=== PATIENT | female | born 1950 | race Caucasian/White ===

== ENCOUNTER 2016-05-29 13:49 | Emergency (ER) | payer OTHER, MEDICAID ==
[~2016-05-29] VITALS: Ht 152.4 cm; Wt 81.6 kg
[~2016-05-29 13:49] MED LIST: ATIVAN1 M1 PO; BENADRYL50 MG PO; CATAPRES0.2 MG PO; HYZAAR 12.5 MG-1 TAB PO; LASIX20 M1 PO; LIPITOR10 MG PO; LOPRESSOR100 M1 PO; NORVASC10 MG PO; PERCOCET 325 MG1 TA4 PO; XANAX0.25 MG PO; ZOLOFT25 MG PO; [UNRECOGNIZED DRUG - OTHER] PO
--- NOTE | 2016-05-29 13:49 | NUR ---
Patient was BIBA and taken to bed 05 via gurney per EMS.
[2016-05-29 13:56] VITALS: BP 138/84
--- NOTE | 2016-05-29 14:13 | NUR ---
BIBA DUE TO RIGHT FOOT PAIN S/P FALL, PT AAO, SKIN WARM TO TOUCH RESP. EVEN AND UNLABORED,NOTED MULTIPLE DRY EXCORIATION ON BOTH FEET AND BOTH PLANTAR,MULTIPLE SMALL SCAR ON LOWER EXTREMITIES, EDEMA NON PITTING ON BOTH FEET 1+, DENIES N/VD.
--- NOTE | 2016-05-29 15:02 | NUR ---
Dr. Duarte evaluating patient at bedside.
[2016-05-29] MEDS ORDERED: KETOROLAC 60 MG/2 ML VIAL IM ONE (15:10)
--- NOTE | 2016-05-29 15:19 | NUR ---
XRAY AT BEDSIDE
[2016-05-29] MEDS ORDERED: fentaNYL 0.05 MG/ML VIAL IM ONE (16:00)
--- NOTE | 2016-05-29 16:23 | NUR ---
PT SLEEPING AT THIS TIME, WILL CHECK PT AGAIN LATER.
[2016-05-29 17:54] VITALS: BP 160/90
--- NOTE | 2016-05-29 17:58 | NUR ---
PUT PT IN THE WHEELCHAIR, PT AAO, STILL COMPLAINING OF PAIN ON RIGHT FOOT BUT ALREADY MEDICATED, SANDWHICH GIVEN , STILL WAITING FOR DAUGHTER TO COME FOR CLEANER WALL, VITAL SIGN STABLE.
--- NOTE | 2016-05-29 18:01 | NUR ---
Patient discharged with v/s stable. Written and verbal after care instructions given and explained. Patient alert, oriented and verbalized understanding of instructions. Wheel Chair Assisted with steady gait. All questions addressed prior to discharge. ID band removed. Patient advised to follow up with PMD. Rx of TRAMADOL,LOTRIMIN given. Patient educated on indication of medication including possible reaction and side effects. Opportunity to ask questions provided and answered.
[2016-05-29] MEDS ORDERED: CLOTRIMAZOLE 1% 30 GM CRM TUBE TP SCH (21:00)
== END 2016-05-29 18:01 | disposition home or self-care (01) ==
LOC: MED 13:49
DX: S93.601A Unspecified sprain of right foot, initial encounter (principal); B35.4 Tinea corporis; I50.9 Heart failure, unspecified; I11.0 Hypertensive heart disease with heart failure; Z88.1 Allergy status to other antibiotic agents; Z88.5 Allergy status to narcotic agent; Z91.013 Allergy to seafood; Z86.73 Personal history of transient ischemic attack (TIA), and cerebral infarction without residual deficits; X50.1XXA Overexertion from prolonged static or awkward postures, initial encounter; Y93.89 Activity, other specified; Y92.811 Bus as the place of occurrence of the external cause; Y99.8 Other external cause status
CPT/HCPCS: 73630; 96372; 99284; J1885; J3010

== ENCOUNTER 2017-05-04 20:10 | Emergency (ER) | payer OTHER, MEDICAID ==
[~2017-05-04] VITALS: Ht 152.4 cm; Wt 93.9 kg
[~2017-05-04 20:10] MED LIST changes: +ACET-5636 PO; +AMLO10TA PO; -ATIVAN1 M1 PO; +ATOR10TA PO; +BEN50 PO; -BENADRYL50 MG PO; -CATAPRES0.2 MG PO; +CLON0.2T43 PO; +FURO-572 PO; +HYDR1TAB22 PO; -HYZAAR 12.5 MG-1 TAB PO; -LASIX20 M1 PO; -LIPITOR10 MG PO; -LOPRESSOR100 M1 PO; +LORA-476 PO; +METO100T98 PO; -NORVASC10 MG PO; -PERCOCET 325 MG1 TA4 PO; +SERT25TA PO; -XANAX0.25 MG PO; -ZOLOFT25 MG PO; -[UNRECOGNIZED DRUG - OTHER] PO
[2017-05-04 20:37] VITALS: BP 182/105
--- NOTE | 2017-05-04 20:43 | NUR ---
PT TAKEN TO ER BED 3
[2017-05-04] MEDS ORDERED: CLOB-114 TP (20:56)
[2017-05-04] MEDS ORDERED: LON2.5 PO (20:56)
[2017-05-04] MEDS ORDERED: ACET-2869 PO (20:56)
[2017-05-04] MEDS ORDERED: CLOP75TA55 PO (20:56)
[2017-05-04] MEDS ORDERED: HYDR-3233 PO (20:56)
[2017-05-04] MEDS ORDERED: DOCU-299 PO (20:56)
[2017-05-04] MEDS ORDERED: ASPI81EC98 PO (20:56)
[2017-05-04] MEDS ORDERED: ASPIRIN 325 MG TAB PO ONE ×2 (21:00→22:00)
[2017-05-04] MEDS ORDERED: NALOXONE 0.4 MG/ML VIAL ONE ×2 (21:04→21:07)
[2017-05-04] MEDS ORDERED: ONDANSETRON 4 MG/2 ML VIAL ONE (21:04)
--- NOTE | 2017-05-04 21:05 | NUR ---
PATIENT BIBA FOR ABD PAIN. PT HAD UMBILICAL SURG YESTERDAY AT [facility] IN [facility]. PAIN IS 12/26 MED HX: STINTS/ANEURESYM/1 KIDNEY/HTN . DENIES N/V/D; SKIN IS PINK/WARM/DRY, SURGICAL WOUND SITE TO MIDDLE ABDOMEN, CLOSE WOUND; AAOX4 WITH EVEN AND STEADY GAIT; LUNGS CLEAR BL; C/O ONSET OF CHEST PAIN 10/26, SR ON EKG. PT DENIES ANY FEVER, SOB, OR COUGH AT THIS TIME; HTN NOTED, PATIENT POSITIONED FOR COMFORT; HOB ELEVATED; BEDRAILS UP X2; BED DOWN. ER MD MADE AWARE OF PT STATUS.
[2017-05-04] MEDS ORDERED: NALOXONE PFS 2 MG/2 ML SYR ONE (21:06)
--- NOTE | 2017-05-04 21:26 | NUR ---
DR. SAWYER EVALUATING PATIENT
--- NOTE | 2017-05-04 21:27 | NUR ---
X-Ray at bedside.
[2017-05-04] MEDS ORDERED: oxyCODONE/APAP 5/325 MG 1 TAB TAB PO ONE (21:30)
[2017-05-04] MEDS ORDERED: hydrALAZINE 20 MG/ML VIAL IM ONE (21:30)
[2017-05-04] MEDS ORDERED: ONDANSETRON 4 MG/2 ML VIAL IVP ONE (22:00)
[2017-05-04] MEDS ORDERED: NACL 0.9% 1,000 ML IV ONE (22:00)
[2017-05-04] MEDS ORDERED: NITROGLYCERIN 0.4 MG TAB SL ONE (22:00)
[2017-05-04 22:09] LABS: BASOPHILS # (AUTO) 0.2 K/uL (0.00-0.22); BASOPHILS % (AUTO) 1.3 % (0.0-2.0); EOSINOPHILS # (AUTO) 0.8 K/uL (0-0.4); EOSINOPHILS % (AUTO) 7.1 % (0.0-4.0); HEMATOCRIT 35.2 % (36-48); HEMOGLOBIN 11.3 g/dL (12.0-16.0); LYMPHOCYTES # (AUTO) 2.8 K/uL (2.5-16.5); LYMPHOCYTES % (AUTO) 23.6 % (20.5-51.1); MEAN CORPUSCULAR HEMOGLOBIN 24 pg (27-31); MEAN CORPUSCULAR HGB CONC 32 g/dL (33-37); MEAN CORPUSCULAR VOLUME 75 fL (80-94); MONOCYTES # (AUTO) 0.9 K/uL (0.8-1.0); MONOCYTES % (AUTO) 7.6 % (1.7-9.3); NEUTROPHILS # (AUTO) 7.1 K/uL (1.8-7.7); NEUTROPHILS % (AUTO) 60.4 % (42.2-75.2); PLATELET COUNT (AUTO) 361 K/uL (140-450); RED CELL DISTRIBUTION WIDTH 16.4 % (11.6-13.7); WHITE BLOOD COUNT (AUTO) 11.8 K/uL (4.8-10.8)
[2017-05-04 22:27] LABS: ANION GAP 14.8 (8-16); CARBON DIOXIDE 23.1 mmol/L (21-32); CREATININE 1.1 mg/dL (0.6-1.3); POTASSIUM 3.9 mmol/L (3.5-5.1)
[2017-05-04 22:33] LABS: ALBUMIN 3.2 g/dL (3.4-5.0); TOTAL BILIRUBIN 0.2 mg/dL (0.0-1.0)
[2017-05-04] MEDS ORDERED: ZOLPIDEM 5 MG TAB PO PRN (22:45)
[2017-05-04] MEDS ORDERED: ACETAMINOPHEN 325 MG TAB PO PRN (22:45)
[2017-05-04] MEDS ORDERED: LORazepam 2 MG/ML VIAL IVP PRN (22:45)
[2017-05-04] MEDS ORDERED: ONDANSETRON 4 MG/2 ML VIAL IVP PRN (22:45)
[2017-05-04] MEDS ORDERED: diphenhydrAMINE 50 MG CAP PO PRN (22:55)
[2017-05-04] MEDS ORDERED: OXYCODONE HCL PO PRN (22:55)
[2017-05-04] MEDS ORDERED: ACETAMINOPHEN PO PRN (22:55)
[2017-05-04] MEDS ORDERED: LORazepam 1 MG TAB PO PRN (22:55)
[2017-05-04 23:45] VITALS: BP 156/79
--- NOTE | 2017-05-04 23:45 | NUR ---
RECEIVED PATIENT FROM ER. PATIENT A&OX4. PATIENT STATES 9/10 PAIN IN ABDOMINAL AREA. PATIENT IV PATENT AND INTACT. NO SIGNS OR SYMPTOMS OF ACUTE DISTRESS NOTED. PATIENT ORIENTED TO UNIT. CALL LIGHT WITHIN REACH. SAFETY MEASURES ENSURED. WILL CONTINUE TO MONITOR.
--- NOTE | 2017-05-04 23:45 | NUR ---
Patient will be admitted to care of DR. MCCORMICK. Admited to [facility]. Will go to room 112A. Belongings list completed. Report to DHIRAJ.
[2017-05-05] MEDS: HYDROcodone/APAP 5/325 MG 1 TAB TAB PO PRN ×2 (00:36→18:15)
--- NOTE | 2017-05-05 02:03 | NUR ---
PATIENT STATES BREAKTHROUGH PAIN 11/26. NOTIFIED DR. CATALAN. WILL MEDICATE ORDERED.
[2017-05-05] MEDS: traMADol 50 MG TAB PO PRN ×3 (02:17→11:00)
[2017-05-05 04:00] VITALS: BP 144/69
--- NOTE | 2017-05-05 07:30 | NUR ---
RECEIVED PATIENT REPORT AT BEDSIDE. PATIENT IS AWAKE AND ALERT AT THIS TIME. PATIENT A&OX4 AT THIS TIME. PATIENT BREATHING IS IS SYMMETRICAL AND UNLABORED. UPDATED BOARDS AND LOWERED THE BED. CALL LIGHT WITHIN REACH OF PATIENT. NIGHTSHIFT NURSE ENDORSED PAIN ASSESSMENT. WILL REASSESS PATIENT'S PAIN. WILL CONTINUE TO MONITOR PATIENT.
--- NOTE | 2017-05-05 07:37 | NUR ---
ENDORSED PLAN OF CARE TO AM RN. PATIENT IN STABLE CONDITION.
[2017-05-05 07:40] LABS: ANION GAP 13.7 (8-16); CARBON DIOXIDE 24.1 mmol/L (21-32); CREATININE 1.1 mg/dL (0.6-1.3); POTASSIUM 3.8 mmol/L (3.5-5.1)
[2017-05-05 08:00] VITALS: BP 136/78
[2017-05-05 08:33] LABS: CREATINE KINASE MB 0.7 ng/mL (0-3.6)
[2017-05-05 08:35] LABS: BASOPHILS # (AUTO) 0.5 K/uL (0.00-0.22); BASOPHILS % (AUTO) 4.5 % (0.0-2.0); EOSINOPHILS # (AUTO) 0.8 K/uL (0-0.4); EOSINOPHILS % (AUTO) 7.6 % (0.0-4.0); HEMATOCRIT 32.4 % (36-48); HEMOGLOBIN 10.6 g/dL (12.0-16.0); LYMPHOCYTES # (AUTO) 2.3 K/uL (2.5-16.5); LYMPHOCYTES % (AUTO) 22.5 % (20.5-51.1); MEAN CORPUSCULAR HEMOGLOBIN 25 pg (27-31); MEAN CORPUSCULAR HGB CONC 33 g/dL (33-37); MEAN CORPUSCULAR VOLUME 76 fL (80-94); MONOCYTES # (AUTO) 0.9 K/uL (0.8-1.0); MONOCYTES % (AUTO) 8.4 % (1.7-9.3); NEUTROPHILS # (AUTO) 5.7 K/uL (1.8-7.7); PLATELET COUNT (AUTO) 335 K/uL (140-450); RED CELL DISTRIBUTION WIDTH 16.3 % (11.6-13.7); WHITE BLOOD COUNT (AUTO) 10.2 K/uL (4.8-10.8)
[2017-05-05] MEDS ORDERED: FUROSEMIDE 20 MG TAB PO SCH (09:00)
[2017-05-05] MEDS ORDERED: LOSARTAN 50 MG TAB PO SCH (09:00)
[2017-05-05] MEDS: hydrALAZINE 10 MG TAB PO SCH ×3 (09:00→18:29)
[2017-05-05] MEDS ORDERED: LOSARTAN PO SCH (09:00)
[2017-05-05] MEDS ORDERED: DOCUSATE SODIUM 100 MG GELCAP PO SCH (09:00)
[2017-05-05] MEDS ORDERED: cloNIDine 0.1 MG TAB PO SCH (09:00)
[2017-05-05] MEDS ORDERED: ASPIRIN 81 MG TAB.CHEW PO SCH (09:00)
[2017-05-05] MEDS ORDERED: HYDROCHLOROTHIAZIDE 25 MG TAB PO SCH (09:00)
[2017-05-05] MEDS ORDERED: ATORVASTATIN 20 MG TAB PO SCH (09:00)
[2017-05-05] MEDS ORDERED: HYDROCHLOROTHIAZIDE PO SCH (09:00)
[2017-05-05] MEDS ORDERED: METOPROLOL 50 MG TAB PO SCH (09:00)
[2017-05-05] MEDS ORDERED: MINOXIDIL 2.5 MG TAB PO SCH (09:00)
[2017-05-05] MEDS ORDERED: amLODIPine 5 MG TAB PO SCH (09:00)
[2017-05-05] MEDS ORDERED: ENOXAPARIN 40 MG/0.4 ML SYR SUBQ SCH (09:00)
[2017-05-05] MEDS ORDERED: ECOTRIN 81 MG TABEC PO SCH (09:00)
[2017-05-05] MEDS ORDERED: CLOPIDOGREL 75 MG TAB PO SCH (09:00)
--- NOTE | 2017-05-05 10:00 | NUR ---
PATIENT IS AWAKE AT THIS TIME. NO SIGNS OF PAIN OR RESPIRATORY DEPRESSION OR RESPIRATORY DISTRESS. WILL CONTINUE TO MONITOR PATIENT.
--- NOTE | 2017-05-05 10:12 | NUR ---
PATIENT HAS BEEN SCREENED AND CATEGORIZED HIGH NUTRITION RISK. PATIENT WILL BE SEEN WITHIN 1-2 DAYS OF ADMISSION. 05/05/17 - 05/06/17 NORA HIDALGO MBA, RD
[2017-05-05 11:26] LABS: FREE T4 (FREE THYROXINE) 1.3 ng/dL (0.76-1.46); THYROID STIMULATING HORMONE 2.17 uIU/mL (0.34-3.74)
[2017-05-05 12:00] VITALS: BP 124/69
--- NOTE | 2017-05-05 13:47 | NUR ---
PATIENT ABLE TO WALK UP AND DOWN HALLWAY OF THE MEDICAL SURGICAL UNIT TO THE END OF THE TELEMETRY UNIT. PATIENT TOLERATED WELL. PATIENT O2 SATURATION IS 97% AFTER WALKING.
--- NOTE | 2017-05-05 14:56 | NUR ---
05/05/17 RD INITIAL ASSESSMENT COMPLETED PLEASE REFER TO NUTRITION ASSESSMENT UNDER CARE ACTIVITY FOR ESTIMATED NUTRITIONAL NEEDS. RD RECOMMENDATIONS: 1- RECOMMEND CONTINUE CARDIAC DIET 2- EDUCATE PT ON DIET 3- ENCOURAGE GRADUAL HEALTHY WEIGHT LOSS 4- F/U 3-5 DAYS; MODERATE RISK. NORA HIDALGO MBA, RD
[2017-05-05 15:21] LABS: CREATINE KINASE MB 0.6 ng/mL (0-3.6)
[2017-05-05 16:00] VITALS: BP 138/77
--- NOTE | 2017-05-05 16:00 | NUR ---
PATIENT ASLEEP AT THIS TIME. RESPIRATIONS ARE EVEN AND UNLABORED. WILL CONTINUE TO MONITOR PATIENT.
--- NOTE | 2017-05-05 19:33 | NUR ---
PATIENT SIGNED ALL DISCHARGE FORMS AND VERBALIZED UNDERSTANDING. PATIENT GATHERED ALL BELONGINGS. CUT WRIST BANDS OFF PATIENT AND DISCONTINUED BOTH IV CATHETERS. TOOK TELE MONITOR OFF PATIENT. BOTH IV CATHETERS INTACT. PATIENT LEFT THE UNIT VIA WHEELCHAIR WITH ALL BELONGINGS.
[2017-05-05] MEDS ORDERED: SERTRALINE 50 MG TAB PO SCH (21:00)
== END 2017-05-05 19:50 | disposition home or self-care (01) ==
LOC: MED 20:10 → MTU 22:44
PROVIDERS: ADMIT Hospitalist; ATTEND Hospitalist
DX: R07.89 Other chest pain (principal); I11.9 Hypertensive heart disease without heart failure; E11.9 Type 2 diabetes mellitus without complications; I25.10 Atherosclerotic heart disease of native coronary artery without angina pectoris; I25.2 Old myocardial infarction; Z95.5 Presence of coronary angioplasty implant and graft; F32.9 Major depressive disorder, single episode, unspecified; Z86.73 Personal history of transient ischemic attack (TIA), and cerebral infarction without residual deficits
CPT/HCPCS: 36415; 71045; 80048; 80053; 82550; 82553; 83735; 83880; 84439; 84443; 84484; 85025; 87081; 93005; 93307; 96361; 96372; 96374; 99285; G0378; J0360; J1650; J2405; J7030; J2310

== ENCOUNTER 2017-11-18 15:00 | Emergency (ER) | payer OTHER, MEDICAID ==
[~2017-11-18] VITALS: Ht 152.4 cm; Wt 83.9 kg
[~2017-11-18 15:00] MED LIST changes: +ACET-2869 PO; -ACET-5636 PO; +ASPI81EC98 PO; -BEN50 PO; +CLOB-114 TP; +CLOP75TA55 PO; +DOCU-299 PO; +HYDR-3233 PO; +LON2.5 PO
--- NOTE | 2017-11-18 15:03 | NUR ---
Patient ambulated to bed 7. RN evaluating patient while EKG is the completed by EMT at bedside.
[2017-11-18 15:10] VITALS: BP 146/85
--- NOTE | 2017-11-18 15:18 | NUR ---
Dr. Payton evaluating patient at bedside.
[2017-11-18] MEDS ORDERED: ACETAMINOPHEN EXTRA STRENGTH 500 MG TAB PO ONE (15:30)
[2017-11-18] MEDS ORDERED: traMADol 50 MG TAB PO ONE (15:30)
--- NOTE | 2017-11-18 15:30 | NUR ---
PT AMBULATED TO ROOM 7 WITH C/O INTERMITTENT LEFT ANTERIOR CHEST WALL PAIN RADIATING TO LEFT UPPER BACK WHILE MOPPING TODAY COUPLE OF HOURS AGO BEFORE COMING TO ER. SLIGHTLY TACYPNIC AT 25 BREATHS/MIN, SKIN W/D/I. ALSO REPORTS NAUSEA/VOMITTING, HEADACHE. MILD NUMBNESS/TINGLING TO LEFT ARM. MED HX: ANEURYSM 8 YRS AGO, 7 STENTS, HTN. LYMPHOMA, 1 KIDNEY, APNEA RX: NORVASC, BESYLATE, METOPROLOL,LOSARTAN,LASIX,PLAVIX
[2017-11-18 15:59] LABS: BASOPHILS # (AUTO) 0.1 K/uL (0.00-0.22); BASOPHILS % (AUTO) 0.9 % (0.0-2.0); EOSINOPHILS # (AUTO) 0.5 K/uL (0-0.4); HEMATOCRIT 32.2 % (36-48); HEMOGLOBIN 10.7 g/dL (12.0-16.0); MEAN CORPUSCULAR HEMOGLOBIN 26 pg (27-31); MEAN CORPUSCULAR HGB CONC 33 g/dL (33-37); MEAN CORPUSCULAR VOLUME 78.8 fL (80-94); MONOCYTES # (AUTO) 0.7 K/uL (0.8-1.0); NEUTROPHILS # (AUTO) 5.4 K/uL (1.8-7.7); NEUTROPHILS % (AUTO) 62.1 % (42.2-75.2); PLATELET COUNT (AUTO) 327 K/uL (140-450); RED BLOOD CELL COUNT(AUTO) 4.09 MIL/uL (4.20-5.40); WHITE BLOOD COUNT (AUTO) 8.6 K/uL (4.8-10.8)
[2017-11-18 16:21] LABS: ALBUMIN 3.3 g/dL (3.4-5.0); ANION GAP 14.7 (8-16); CARBON DIOXIDE 21.3 mmol/L (21-32); CREATININE 1.3 mg/dL (0.6-1.3); TOTAL BILIRUBIN 0.3 mg/dL (0.0-1.0)
[2017-11-18] MEDS ORDERED: POTASSIUM CHLORIDE 10 MEQ TABER PO ONE (17:00)
[2017-11-18 17:19] VITALS: BP 141/79
--- NOTE | 2017-11-18 17:19 | NUR ---
Patient discharged with v/s stable. Written and verbal after care instructions given and explained. Patient alert, oriented and verbalized understanding of instructions. Ambulatory with steady gait. All questions addressed prior to discharge. ID band removed. Patient advised to follow up with PMD. Rx of Tramadol, Acetaminophen given. Patient educated on indication of medication including possible reaction and side effects. Opportunity to ask questions provided and answered.
== END 2017-11-18 17:19 | disposition home or self-care (01) ==
LOC: MED 15:00
DX: R07.89 Other chest pain (principal); M19.042 Primary osteoarthritis, left hand; E87.6 Hypokalemia; I10 Essential (primary) hypertension; Z86.73 Personal history of transient ischemic attack (TIA), and cerebral infarction without residual deficits
CPT/HCPCS: 36415; 71045; 80053; 84484; 85025; 93005; 99285; Q0092

== ENCOUNTER 2019-04-06 14:24 | Emergency (ER) | payer OTHER, MEDICAID ==
[~2019-04-06] VITALS: Ht 154.9 cm; Wt 88.5 kg
[~2019-04-06 14:24] MED LIST changes: -ACET-2869 PO; +HYDR-5122 PO
[2019-04-06 14:38] VITALS: BP 159/75
[2019-04-06] MEDS ORDERED: IBUPROFEN 800 MG TAB PO ONE (14:50)
[2019-04-06] MEDS ORDERED: IBUPROFEN 600 MG TAB PO ONE (14:50)
--- NOTE | 2019-04-06 14:53 | NUR ---
DR JULIEN EVALUATING PT AT BEDSIDE
--- NOTE | 2019-04-06 14:55 | NUR ---
C/O CONSTANT HEADACHE X 2 DAYS. MOST SEVERE AT RT TEMPORAL BUT RADIATES TO REST OF HEAD. ALSO FEVER 102 TODAY, TOOK TYLENOL AT 11AM TODAY. TEMP NOW 103 F. STATES WENT TO ER YESTERDAY FOR ELEVATED BP AND WAS RELEASED. STATES DIZZINESS AND BLURRY VISION. STATES NASAL CONGESTION AND COUGH. STATES MILD CHEST PAIN RADIATING TO THE BACK. 159/75 AT THIS TIME HX- NONHODGKIN LYMPHOMA, HTN, CARDIAC STENTS
[2019-04-06] MEDS ORDERED: diphenhydrAMINE 50 MG/ML VIAL IVP ONE (15:00)
[2019-04-06] MEDS ORDERED: NACL 0.9% 1,000 ML IV ONE (15:00)
--- NOTE | 2019-04-06 15:07 | NUR ---
EMT AT BEDSIDE FOR EKG
--- NOTE | 2019-04-06 15:10 | NUR ---
STUDENT FINANCE SPECIALIST AT BEDSIDE
--- NOTE | 2019-04-06 15:12 | NUR ---
CXR AT BEDSIDE
[2019-04-06 15:51] LABS: BASOPHILS # (AUTO) 0.1 K/uL (0.00-0.22); BASOPHILS % (AUTO) 0.8 % (0.0-2.0); EOSINOPHILS # (AUTO) 0.3 K/uL (0-0.4); EOSINOPHILS % (AUTO) 4.3 % (0.0-4.0); HEMOGLOBIN 11.9 g/dL (12.0-16.0); LYMPHOCYTES # (AUTO) 0.7 K/uL (2.5-16.5); LYMPHOCYTES % (AUTO) 9.3 % (20.5-51.1); MEAN CORPUSCULAR HEMOGLOBIN 27 pg (27-31); MEAN CORPUSCULAR HGB CONC 32 g/dL (33-37); MEAN CORPUSCULAR VOLUME 85.3 fL (80-94); MONOCYTES # (AUTO) 1.1 K/uL (0.8-1.0); MONOCYTES % (AUTO) 15.1 % (1.7-9.3); NEUTROPHILS # (AUTO) 4.9 K/uL (1.8-7.7); NEUTROPHILS % (AUTO) 70.5 % (42.2-75.2); PLATELET COUNT (AUTO) 216 K/uL (140-450); RED BLOOD CELL COUNT(AUTO) 4.34 MIL/uL (4.20-5.40); RED CELL DISTRIBUTION WIDTH 14.8 % (11.6-13.7)
[2019-04-06 16:09] LABS: ANION GAP 18.1 (8-16); CARBON DIOXIDE 23.6 mmol/L (21-32); CREATININE 1.5 mg/dL (0.6-1.3); POTASSIUM 3.7 mmol/L (3.5-5.1)
[2019-04-06 16:15] LABS: ALBUMIN 3.4 g/dL (3.4-5.0); TOTAL BILIRUBIN 0.4 mg/dL (0.0-1.0)
[2019-04-06] MEDS ORDERED: HYDROcodone/APAP 5/325 MG 1 TAB TAB PO ONE (17:00)
--- NOTE | 2019-04-06 17:28 | NUR ---
PT AMB TO BATHROOM. URINE SAMPLE COLLECTED.
[2019-04-06 18:08] LABS: APPEARANCE,URINE CLEAR (CLEAR); BILIRUBIN,URINE NEGATIVE (NEGATIVE); BLOOD, URINE NEGATIVE (NEGATIVE); COLOR,URINE YELLOW (YELLOW); LEUKOCYTE ESTERASE ,URINE TRACE (NEGATIVE); NITRITE, URINE NEGATIVE (NEGATIVE); PH,URINE 5.5 (5.0-9.0); UGLUCOSE NEGATIVE (NEGATIVE)
[2019-04-06 18:22] LABS: RBC,URINE 0-5 /HPF (0-5); WBC,URINE 0-5 /HPF (0-5)
[2019-04-06 18:57] VITALS: BP 159/82
--- NOTE | 2019-04-06 18:57 | NUR ---
Patient discharged with v/s stable. Written and verbal after care instructions given and explained. Patient verbalized understanding. Ambulatory with steady gait. WILL CALL [facility] FOR PICKUP. All questions addressed prior to discharge. Advised to follow up with PMD.
--- NOTE | 2019-04-07 11:00 | NUR ---
Late entry. Confirmed with RN that 0.9 NS IV completed at 1855
== END 2019-04-06 18:57 | disposition home or self-care (01) ==
LOC: MED 14:24
DX: R51 Headache (principal); R09.81 Nasal congestion; R05 Cough; R50.9 Fever, unspecified; R07.9 Chest pain, unspecified; I10 Essential (primary) hypertension; I50.9 Heart failure, unspecified; Z88.5 Allergy status to narcotic agent; Z91.013 Allergy to seafood; Z88.9 Allergy status to unspecified drugs, medicaments and biological substances; Z88.8 Allergy status to other drugs, medicaments and biological substances; Z79.899 Other long term (current) drug therapy; Z79.82 Long term (current) use of aspirin
CPT/HCPCS: 36415; 71045; 80053; 81001; 84484; 85025; 93005; 96374; 99284; J1200; J7030; Q0092

== ENCOUNTER 2019-04-08 21:29 | Inpatient (IN) | payer OTHER, MEDICAID ==
[~2019-04-08] VITALS: Ht 152.4 cm; Wt 88.0 kg
[2019-04-08 21:32] VITALS: BP 160/79
--- NOTE | 2019-04-08 21:35 | NUR ---
TO LOBBY A/W BED AMBULATORY
[2019-04-08] MEDS ORDERED: ACETAMINOPHEN EXTRA STRENGTH 500 MG TAB PO ONE (21:50)
[2019-04-08] MEDS ORDERED: IBUPROFEN 600 MG TAB PO ONE (21:50)
[2019-04-08] MEDS ORDERED: metroNIDAZOLE 500 MG/NS PREMIX 100 ML IV ONE (23:05)
[2019-04-08] MEDS ORDERED: NACL 0.9% 1,000 ML IV ONE (23:05)
[2019-04-08] MEDS ORDERED: LEVOFLOXACIN 500 MG/D5W PREMIX 100 ML IV ONE (23:05)
--- NOTE | 2019-04-08 23:05 | NUR ---
PT MOVED TO BED 4
--- NOTE | 2019-04-08 23:30 | NUR ---
68 Y/O FEMALE C/O DIAHRREA X 1 DAY. ABD IS SOFT, ROUND, NONTENDER. VSS. FEVER OF 102.7 NOTED. LUNG SOUNDS CLEAR ALL THROUGHOUT. HEART SOUND S1S2 PRESENT. DIAHRREA ( >5 EPISODE), VOMITTING ( > 5 EPISODES), CHANGE OF APPETITE NOTED. A & O X4. STEADY GAIT. ALLERGIES: IODINATED CONTRAST MEDIA, CODEINE PMH: HTN, NONHODGKIN LYMPHOMA.
[2019-04-08] MEDS ORDERED: ACETAMINOPHEN 325 MG TAB PO PRN (23:50)
[2019-04-08] MEDS ORDERED: ONDANSETRON 4 MG/2 ML VIAL IM/IVP PRN (23:50)
[2019-04-08] MEDS ORDERED: NACL 0.9% 1,000 ML IV SCH (23:50)
[2019-04-08] MEDS ORDERED: DOCUSATE SODIUM 100 MG GELCAP PO PRN (23:50)
[2019-04-09 00:01] LABS: BASOPHILS % (AUTO) 0.5 % (0.0-2.0); EOSINOPHILS # (AUTO) 0.1 K/uL (0-0.4); EOSINOPHILS % (AUTO) 1.5 % (0.0-4.0); HEMATOCRIT 39.4 % (36-48); HEMOGLOBIN 12.3 g/dL (12.0-16.0); LYMPHOCYTES # (AUTO) 0.7 K/uL (2.5-16.5); MEAN CORPUSCULAR HEMOGLOBIN 27 pg (27-31); MEAN CORPUSCULAR HGB CONC 31 g/dL (33-37); MONOCYTES # (AUTO) 0.9 K/uL (0.8-1.0); MONOCYTES % (AUTO) 11.1 % (1.7-9.3); NEUTROPHILS # (AUTO) 6.4 K/uL (1.8-7.7); NEUTROPHILS % (AUTO) 78.8 % (42.2-75.2); PLATELET COUNT (AUTO) 224 K/uL (140-450); RED BLOOD CELL COUNT(AUTO) 4.63 MIL/uL (4.20-5.40); RED CELL DISTRIBUTION WIDTH 14.6 % (11.6-13.7); WHITE BLOOD COUNT (AUTO) 8.1 K/uL (4.8-10.8)
[2019-04-09 00:12] LABS: ALBUMIN 3.6 g/dL (3.4-5.0); ANION GAP 14.5 (8-16); CARBON DIOXIDE 24.4 mmol/L (21-32); CREATININE 1.4 mg/dL (0.6-1.3); TOTAL BILIRUBIN 0.3 mg/dL (0.0-1.0)
[2019-04-09] MEDS ORDERED: MEDICATION REC. PHARMACY CONS. 1 EA MISC MC PRN (00:15)
[2019-04-09 00:17] LABS: LYMPHOCYTES % (AUTO) 8.1 % (20.5-51.1)
[2019-04-09 00:23] LABS: MAGNESIUM 1.6 mg/dL (1.8-2.4); PHOSPHORUS 1.8 mg/dL (2.5-4.9); POTASSIUM 2.9 mmol/L (3.5-5.1); THYROID STIMULATING HORMONE 1.7 uIU/mL (0.34-3.74)
[2019-04-09 00:30] LABS: PROTHROMBIN TIME 9.9 secs (10.8-13.4)
[2019-04-09] MEDS ORDERED: POTASSIUM CHL 20 MEQ/NACL 0.9% 1,000 ML IV ONE (00:40)
--- NOTE | 2019-04-09 00:51 | NUR ---
PMH: GALLBLADDER REMOVAL, NONHODKINS LYMPHOMA, LEFT KIDNEY REMOVAL, UTERUS REMOVED, 8 STENTS PLACEMENTS, HTN, CHMO LAST GIVEN DEC, AND RADIATION LAST GIVEN FEB.
[2019-04-09] MEDS ORDERED: ACETAMINOPHEN EXTRA STRENGTH 500 MG TAB PO ONE (01:35)
[2019-04-09] MEDS ORDERED: hydrALAZINE 20 MG/ML VIAL IVP PRN (02:55)
[2019-04-09] MEDS ORDERED: POTASSIUM CHLORIDE 40 MEQ, LIDOCAINE MPF 1% 25 MG in NACL 0.9% 250 ML IV ONE (02:55)
--- NOTE | 2019-04-09 03:11 | NUR ---
PT ARRIVED AT UNIT VIA GURNEY, PT AMBULATED TO BED, TOLERATED WELL, NO DISTRESS NOTED, RECEIVED BEDSIDE REPORT FROM LEDGE MAN YOLANDA, PT STABLE, IV TO R FA PATENT INTACT, INFUSING WELL, PT ON ROOM AIR, NO SOB NOTED, ORIENT PT TO ROOM, BED, CALL LIGHT, MRSA SWAB TAKEN, PT RESTING, INITIAL ASSESSMENT DONE, ALL SAFETY PRECAUTION MET, CALL LIGHT WITHIN REACH, PER PT NOT TO USE PORT A CATH. WILL CONTINUE TO MONITOR.
--- NOTE | 2019-04-09 03:40 | NUR ---
TALKED TO DR. SEBASTIAN REGARDING PT MEDICATION AND THERE IS ONLY 1 IV AND PT IS A HARD STICK. PER DR SEBASTIAN TO ADMINISTER PO POTASSIUM AND MAGNESIUM FIRST, WILL CONTINUE WITH ORDERS.
[2019-04-09] MEDS: HYDROcodone/APAP 5/325 MG 1 TAB TAB PO PRN ×2 (03:58→18:00)
--- NOTE | 2019-04-09 03:59 | NUR ---
DUE MEDICATION ADMINISTERED, PT TOLERATED WELL, PT C/O PAIN, MEDICATION GIVEN PER DR ORDER. PT RESTING, CALL LIGHT WITHIN REACH, WILL CONTINUE TO MONITOR.
[2019-04-09 04:00] VITALS: BP 125/65
[2019-04-09] MEDS ORDERED: POTASSIUM CHLORIDE 10 MEQ TABER PO SCH (04:00)
[2019-04-09] MEDS ORDERED: KCL 20 MEQ/WATER INJ PREMIX 200 ML IV ONE (04:00)
[2019-04-09] MEDS ORDERED: MAG SULF 2000 MG/WATER PREMIX 100 ML IV ONE (04:00)
[2019-04-09] MEDS ORDERED: WATER STERILE 20 ML MC ONE (05:38)
[2019-04-09] MEDS: VANCOMYCIN 500 MG VIAL PO SCH ×3 (06:21→18:00)
[2019-04-09 06:24] LABS: APPEARANCE,URINE CLEAR (CLEAR); BILIRUBIN,URINE NEGATIVE (NEGATIVE); BLOOD, URINE NEGATIVE (NEGATIVE); COLOR,URINE YELLOW (YELLOW); LEUKOCYTE ESTERASE ,URINE NEGATIVE (NEGATIVE); NITRITE, URINE NEGATIVE (NEGATIVE); PH,URINE 5.5 (5.0-9.0); UGLUCOSE NEGATIVE (NEGATIVE)
[2019-04-09 06:27] LABS: BASOPHILS % (AUTO) 0.5 % (0.0-2.0); EOSINOPHILS # (AUTO) 0.1 K/uL (0-0.4); EOSINOPHILS % (AUTO) 1.6 % (0.0-4.0); HEMATOCRIT 37.3 % (36-48); HEMOGLOBIN 11.8 g/dL (12.0-16.0); LYMPHOCYTES # (AUTO) 0.9 K/uL (2.5-16.5); LYMPHOCYTES % (AUTO) 14.3 % (20.5-51.1); MEAN CORPUSCULAR HEMOGLOBIN 27 pg (27-31); MEAN CORPUSCULAR HGB CONC 32 g/dL (33-37); MEAN CORPUSCULAR VOLUME 85.7 fL (80-94); MONOCYTES # (AUTO) 0.9 K/uL (0.8-1.0); MONOCYTES % (AUTO) 13.5 % (1.7-9.3); NEUTROPHILS # (AUTO) 4.6 K/uL (1.8-7.7); NEUTROPHILS % (AUTO) 70.1 % (42.2-75.2); PLATELET COUNT (AUTO) 206 K/uL (140-450); RED BLOOD CELL COUNT(AUTO) 4.35 MIL/uL (4.20-5.40); RED CELL DISTRIBUTION WIDTH 14.4 % (11.6-13.7); WHITE BLOOD COUNT (AUTO) 6.6 K/uL (4.8-10.8)
[2019-04-09 07:08] LABS: MAGNESIUM 2.2 mg/dL (1.8-2.4); PHOSPHORUS 2.2 mg/dL (2.5-4.9)
[2019-04-09 07:10] LABS: CHOL/HDL RATIO 5.7 (1-4.5)
[2019-04-09 07:12] LABS: ANION GAP 15.5 (8-16); CARBON DIOXIDE 22.9 mmol/L (21-32); CREATININE 1.3 mg/dL (0.6-1.3); POTASSIUM 3.4 mmol/L (3.5-5.1)
--- NOTE | 2019-04-09 07:25 | NUR ---
ENDORSED PT TO DAY SHIFT NURSE ANG RN, PT STABLE, NO DISTRESS NOTED, CALL LIGHT WITHIN REACH.
--- NOTE | 2019-04-09 07:28 | NUR ---
RECEIVED REPORT FROM NIGHT NURSE. PT IN STABLE CONDITION, AAOX4, NO DISTRESS NOTED, DENIES PAIN. RESPIRATIONS EVEN AND UNLABORED ON ROOM AIR. IV IN PLACE, PATENT AND ASYMPTOMATIC INFUSING PER ORDER IN R FA 22G. R CHEST PORTACATH PRESENT. SKIN INTACT, AMBULATORY. SAFETY MEASURES IN PLACE. CALL LIGHT WITHIN REACH. BED IN LOW POSITION. WILL CONTINUE TO MONITOR.
[2019-04-09 08:00] VITALS: BP 132/56
[2019-04-09] MEDS: metroNIDAZOLE 500 MG/NS PREMIX 100 ML IV SCH ×2 (08:40→15:01)
[2019-04-09] MEDS: FLUTICASONE NASAL 50 MCG/ACTUATION 16 GM BTL NS SCH (08:42)
[2019-04-09] MEDS: SODIUM PHOS / POTASSIUM PHOS 1 PKT PDR PO SCH ×2 (08:42→21:27)
--- NOTE | 2019-04-09 08:47 | NUR ---
PATIENT HAS BEEN SCREENED AND CATEGORIZED HIGH NUTRITION RISK. PATIENT WILL BE SEEN WITHIN 1-2 DAYS OF ADMISSION. 04/09/19-04/10/[address]
[2019-04-09] MEDS ORDERED: PHARMACY COMMENTS MC SCH (09:00)
--- NOTE | 2019-04-09 09:17 | NUR ---
MEDICATIONS ADMINISTERED PER ORDER. PT TOLERATED WELL, NO DISTRESS NOTED. DENIES PAIN. SAFETY MEASURES IN PLACE. WILL CONTINUE TO MONITOR.
[2019-04-09] MEDS: DEXT 5% / NACL 0.9% 500 ML IV SCH ×4 (10:20→22:26)
--- NOTE | 2019-04-09 11:06 | NUR ---
K+ IV SOLUTION SCHEDULED FOR 0400 WAS NOT ADMINISTERED DURING VIDEO PLAYER MECHANIC. LAB VALUES FOR TODAY CAME BACK BARELY LOW, SO ADMINISTRATION WAS CANCELLED PER VERBAL ORDER FROM DR RDZ. WILL CONTINUE TO MONITOR.
[2019-04-09 12:00] VITALS: BP 151/56
[2019-04-09] MEDS ORDERED: LOSA50TA66 PO (12:52)
[2019-04-09] MEDS ORDERED: ZYL300 PO (12:54)
[2019-04-09] MEDS ORDERED: AMLO5TAB5 PO (12:54)
[2019-04-09] MEDS ORDERED: CLOP75TA26 PO (12:54)
[2019-04-09] MEDS ORDERED: FURO-572 PO (12:54)
--- NOTE | 2019-04-09 12:59 | NUR ---
VITAL SIGNS MONITORED AT THIS TIME. PT IN STABLE CONDITION, NO DISTRESS NOTED. SAFETY MEASURES IN PLACE. CALL LIGHT WITHIN REACH. WILL CONTINUE TO MONITOR.
[2019-04-09] MEDS: MORPHINE SULFATE 2 MG/ML SYR IVP PRN ×2 (13:59→21:26)
[2019-04-09] MEDS ORDERED: ALLOPURINOL 300 MG TAB PO SCH (14:15)
--- NOTE | 2019-04-09 14:37 | NUR ---
04/09/19 RD INITIAL ASSESSMENT COMPLETED PLEASE REFER TO NUTRITION ASSESSMENT UNDER CARE ACTIVITY FOR ESTIMATED NUTRITIONAL NEEDS. 1. CONTINUE CLEAR LIQUID DIET TOLERATED 2. RD RECOMMEND ENSURE CLEAR TID 3. RD TO FOLLOW-UP 2-3 DAYS, HIGH RISK COLBY BURROUGHS, RD
[2019-04-09] MEDS ORDERED: SODIUM PHOS / POTASSIUM PHOS 1 PKT PDR PO SCH (15:00)
--- NOTE | 2019-04-09 15:28 | NUR ---
MEDICATIONS ADMINISTERED PER ORDER. PT TOLERATED WELL, NO DISTRESS NOTED. SAFETY MEASURES IN PLACE. CALL LIGHT WITHIN REACH. WILL CONTINUE TO MONITOR.
[2019-04-09] MEDS ORDERED: POTASSIUM CHLORIDE 40 MEQ, LIDOCAINE MPF 1% 25 MG in NACL 0.9% 250 ML IV SCH (15:30)
[2019-04-09 16:00] VITALS: BP 123/63
--- NOTE | 2019-04-09 16:30 | NUR ---
DISCHARGE PLANNING: A 68 Y/O FEMALE PATIENT FROM HOME, WHO CAME IN DUE TO DIARRHEA X2 DAYS. PAST MEDICAL HISTORY INCLUDE NON-HODGKIN'S LYMPHOMA, ESSENTIAL HTN, CAD S/P STENTS. INITIAL DIAGNOSIS DEHYDRATION AND VIRAL GASTROENTERITIS. ID CONSULT IN PLACE. CURRENT LABS INCLUDE WBC 6.6, H/H 11.8/37.3, NA/K 144/3.4. NEGATIVE FOR SHIGA TOXIN AND C DIFF. URINE C/S, MRSA AND BLOOD C/S PENDING. METRONIDAZOLE AND VANCOMYCIN. DC PLAN TO HOME ONCE STABLE Addendum: 04/11/19 at 1106 by Clair Jung CM RECEIVED AN ORDER FOR SNF PLACEMENT FOR CONTINUED HYDRATION, SERIAL METABOLIC LABS AND ELECTROLYTE REPLACEMENT. CONTACTED [facility] AT [phone], ABLE TO SPEAK TO MARY KAPLAN REGARDING DC PLAN. SHE STATED "WITH HYDRATION ALONE, NO SNF WILL ACCEPT THE PATIENT. HOME WITH HOME HEALTH CAN MANAGE THIS." HOWEVER SHE STATED TO GO AHEAD AND FAX IT OVER TO [phone] SO SHE CAN HAVE IT REVIEWED. CLINICALS AND ORDER SENT TO THE PROVIDED FAX NUMBER. Addendum: 04/11/19 at 1355 by Clair Jung CM CONTACTED MARY BAZAN AT [phone] TO FOLLOW UP SNF PLACEMENT, NO ANSWER. LEFT MESSAGE. WILL FOLLOW UP. Addendum: 04/11/19 at 1450 by Clair Jung CM CONTACTED [facility] TO FOLLOW UP ORDER FOR SNF PLACEMENT. SHE STATED THEY ARE NOT APPROVING SNF FOR THIS PATIENT HOWEVER THEY CAN APPROVE HOME HEALTH. DR. CLARK MADE AWARE AND WILL RELAY MESSAGE TO DR. WAGNER. Addendum: 04/11/19 at 1515 by Clair Jung CM MET WITH THE PATIENT AT THE BEDSIDE TO INFORM HER THAT THE INSURANCE DID NOT APPROVE SNF PLACEMENT FOR HER AND WILL DO HOME HEALTH. SHE STATED SHE LIVES ALONE WITH HER CAT. CLARIFIED WITH HER SINCE SHE TOLD ME THIS MORNING THAT SHE WILL BE GOING HOME TO HER DAUGHTER. SHE STATED AFTER ASSISTED. SHE ALSO MENTIONED THAT SHE DOES NOT HAVE ANY APPETITE AT THIS TIME. CONTACTED [facility] MARY KAPLAN, INFORMED HER REGARDING THIS. SHE STATED IF FOR JUST DEHYDRATION THEY WILL NOT APPROVE SNF. IF WE WANT, WE CAN CALL THEIR OUTSIDE UPHOLSTERER KELLEN MAYES [phone]. SHE ALSO PROVIDED ME AFTER HOURS NURSE ISIDRO AT [phone]. DR. WAGNER MADE AWARE. Addendum: 04/13/19 at 1416 by David Valdivia HOLLIS spoke with Dr. Davis regarding discharge plan for patient. [facility]LL[facility] [phone]. [facility] is outside of business hours. Dr. Davis was made aware. HOLLIS/MARY will follow up as needed. Addendum: 04/14/19 at 1105 by Clair Jung CM [id number]: CONTACTED MARY KAPLAN OF [facility] AND MADE HER AWARE THAT THE PATIENT IS STILL HERE. SHE STATED SHE WILL FAX ME OVER THE FORM FOR THE PATIENT TO MAKE AN APPEAL FOR DISCHARGE. INFORMED HER THAT I GOT INFORMED BY THE PRIMARY RN, REGARDING PATIENT'S CLAIMING THAT SHE CALLED THE INSURANCE AND SHE GOT AUTH FOR SNF PLACEMENT. I PROVIDED HER OF THE PHONE NUMBER OF [facility] AND THE REFERENCE NUMBER OF THE CALL. [id number]: RECEIVED A VOICE MESSAGE FROM MARY KAPLAN, STATING THAT SHE CONTACTED [facility] AND SHE SPOKE TO BRAYDEN AND HE TOLD HER THAT THEY ARE THE ONCE DELEGATED TO PROVIDE AUTH FOR SNF. SHE ALSO STATED ME SHE WILL SEND ME A LETTER THAT INCLUDES A PHONE NUMBER FOR THE PATIENT TO CONTACT TO APPEAL THE DISCHARGE AND TO INFORM THE PATIENT THE THE LAST COVERED DAY WILL BE SUNDAY. Addendum: 04/14/19 at 1347 by Clair Jung CONTACTED JERI KAPLAN TO FOLLOW UP WITH THE HOME HEALTH ORDER. I INFORMED HER THE ORDER NOW IS H/H FOR HOME SAFETY EVAL. SHE STATED HOME HEALTH HAVE BEEN SET UP WITH [facility] [phone]. CONTACTED THE PROVIDED NUMBER, ABLE TO SPEAK TO ИРИНА. SHE STATED TO GO AHEAD AND SEND REFERRAL TO [phone]. REFERRAL SENT. MARY WILL FOLLOW UP. Addendum: 04/14/19 at [address] WAGNER AND CHARGE NURSE MADE AWARE. Addendum: 04/14/19 at 1522 by Clair Jung CONTACTED [facility], ABLE TO SPEAK TO ASTER YULY. SHE STATED THEY ARE ABLE TO ACCEPT THE PATIENT. CONFIRMED THE PHONE NUMBER AND ADDRESS ON FILE. SHE STATED SHE TRIED CALLING THE PATIENT, NO ONE IS PICKING UP. MET WITH THE PATIENT AT THE BEDSIDE AND INFORMED HER THAT [facility] IS TRYING TO CONTACT HER, SHE STATED SHE DOES NOT MOBILITY DEVELOPER HER PHONE IF SHE IS NOT FAMILIAR WITH THE NUMBER. WHILE I WAS IN THE ROOM [facility] CALLED THE PATIENT. Addendum: 04/14/19 at 1633 by Clair Jung CM POST STABILIZATION FORM DANA KILPATRICK [phone]
[2019-04-09] MEDS: guaiFENesin 20 MG/ML UDC PO PRN (16:35)
--- NOTE | 2019-04-09 17:48 | NUR ---
MEDICATIONS ADMINISTERED PER ORDER. PT TOLERATED WELL. NO DISTRESS NOTED. WILL CONTINUE TO MONITOR.
--- NOTE | 2019-04-09 19:16 | NUR ---
RECEIVED PT IN STABLE CONDITION FROM AM NURSE. AWAKE,ALERT AND ORIENTED X4. ON TELE MONITOR. NO C/O ANY DISCOMFORT NOR PAIN AT THIS TIME. IVF INFUSING ON THE RT FA G 22. PLAN OF CARE DISCUSSED AND VERBALIZED UNDERSTANDING. BED ON LOW POSITION. SIDE RAILS UP X2. CALL LIGHT WITHIN EASY REACH. INSTRUCTED TO CALL FOR ASSISTANCE. WILL CONTINUE TO MONITOR.
[2019-04-09 20:00] VITALS: BP 149/78
--- NOTE | 2019-04-09 20:00 | NUR ---
REPORT GIVEN TO NIGHT NURSE FOR CONTINUITY OF CARE. Addendum: 04/09/19 at 2000 by Sam So RN REPORT WAS GIVEN AT 1914, NOT 1999
[2019-04-09] MEDS ORDERED: VANCOMYCIN PER PHARMACY MC PRN (22:35)
[2019-04-09] MEDS ORDERED: VANCOMYCIN 1,000 MG in DEXTROSE 5% 250 ML IV SCH (22:45)
[2019-04-09] MEDS: LEVOFLOXACIN 250 MG/D5 PREMIX 50 ML IV SCH (22:57)
[2019-04-09] MEDS ORDERED: BENZOCAINE/MENTHOL 1 LOZ MM PRN (23:00)
[2019-04-10] MEDS: DEXT 5% / NACL 0.9% 500 ML IV SCH ×4 (00:30→23:01)
[2019-04-10] MEDS: guaiFENesin 20 MG/ML UDC PO PRN (00:47)
[2019-04-10 00:50] VITALS: BP 153/72
[2019-04-10 03:57] VITALS: BP 187/88
--- NOTE | 2019-04-10 04:06 | NUR ---
BP ELEVATE 187/88, HR-92. APRESOLINE 10 MG IVP GIVEN ORDERED. . WILL RECHECK LATER.
[2019-04-10] MEDS: MORPHINE SULFATE 2 MG/ML SYR IVP PRN ×3 (05:20→21:38)
--- NOTE | 2019-04-10 05:20 | NUR ---
LATEST BP AFETR THE APRESOLINE PRN 179/71, HR-83. PT C/O GEN PAIN. MEDICATED WITH MORPHINE IVP. WILL CONTINUE TO MONITOR.
[2019-04-10] MEDS: FLUTICASONE NASAL 50 MCG/ACTUATION 16 GM BTL NS SCH (05:25)
--- NOTE | 2019-04-10 05:25 | NUR ---
PT C/O NASAL CONGESTION. WANTS TO HAVE HER FLONASE SPRAY. DR. SEBASTIAN MADE AWARE. SHE SAID OK TO GIVE IT EARLY AT THIS TIME.
[2019-04-10 06:07] LABS: BASOPHILS % (AUTO) 0.5 % (0.0-2.0); EOSINOPHILS # (AUTO) 0.1 K/uL (0-0.4); EOSINOPHILS % (AUTO) 3.2 % (0.0-4.0); HEMATOCRIT 37.2 % (36-48); HEMOGLOBIN 11.9 g/dL (12.0-16.0); LYMPHOCYTES # (AUTO) 0.9 K/uL (2.5-16.5); LYMPHOCYTES % (AUTO) 20.6 % (20.5-51.1); MEAN CORPUSCULAR HEMOGLOBIN 27 pg (27-31); MEAN CORPUSCULAR HGB CONC 32 g/dL (33-37); MEAN CORPUSCULAR VOLUME 85.6 fL (80-94); MONOCYTES # (AUTO) 0.6 K/uL (0.8-1.0); MONOCYTES % (AUTO) 14.9 % (1.7-9.3); NEUTROPHILS # (AUTO) 2.6 K/uL (1.8-7.7); NEUTROPHILS % (AUTO) 60.8 % (42.2-75.2); PLATELET COUNT (AUTO) 205 K/uL (140-450); RED BLOOD CELL COUNT(AUTO) 4.35 MIL/uL (4.20-5.40); RED CELL DISTRIBUTION WIDTH 14.7 % (11.6-13.7); WHITE BLOOD COUNT (AUTO) 4.2 K/uL (4.8-10.8)
[2019-04-10 06:48] LABS: ANION GAP 14.1 (8-16); CREATININE 1.1 mg/dL (0.6-1.3); POTASSIUM 4.1 mmol/L (3.5-5.1)
[2019-04-10 06:53] LABS: MAGNESIUM 1.9 mg/dL (1.8-2.4); PHOSPHORUS 2.1 mg/dL (2.5-4.9)
--- NOTE | 2019-04-10 07:20 | NUR ---
ENDORSED PT IN STABLE CONDITION TO AM NURSE.
--- NOTE | 2019-04-10 07:25 | NUR ---
RECEIVED PT FROM TUBE BENDER HAND NURSE, OTTO AND ORIENTEE NURSE, PT IS AWAKE AND SEATED ON THE BED WITH SIDE RAILS UP AND CALL LIGHT WITHIN REACH, PERIPHERAL LINE ON THE RT FA G. 22 WITH IVF D2NS AT 50ML/HR, AOX4, ON RA, PT DENIES PAIN AND NO SIGN OF DISTRESS NOTED. WILL CONTINUE TO MONITOR PT.
[2019-04-10 08:00] VITALS: BP 159/74
--- NOTE | 2019-04-10 08:00 | NUR ---
CHEST X- RAY WAS DONE TO PT NOW.
[2019-04-10] MEDS ORDERED: ALLOPURINOL 100 MG TAB ONE (10:19)
[2019-04-10] MEDS: ALBUTEROL SULFATE/IPRATROPIU 3 ML SOL IH PRN ×2 (10:29→14:05)
[2019-04-10] MEDS: OSELTAMIVIR PHOSPHATE 75 MG CAP PO SCH ×2 (10:30→21:15)
[2019-04-10] MEDS: CLOPIDOGREL 75 MG TAB PO SCH (10:30)
[2019-04-10] MEDS: SODIUM PHOS / POTASSIUM PHOS 1 PKT PDR PO SCH ×2 (10:30→21:16)
[2019-04-10] MEDS: FUROSEMIDE 20 MG TAB PO SCH (10:30)
--- NOTE | 2019-04-10 10:30 | NUR ---
PT WAS GIVEN THE SCHEDULED AM MEDICATIONS, PARAMETERS WERE CHECKED AND TOLERATED IT, NO NAUSEA AND VOMITING NOTED.
[2019-04-10] MEDS: LOSARTAN 50 MG TAB PO SCH (10:31)
[2019-04-10] MEDS: amLODIPine 5 MG TAB PO SCH (10:31)
--- NOTE | 2019-04-10 10:35 | NUR ---
RT IS GIVING BREATHING TREATMENT NOW TO PT.
[2019-04-10] MEDS: ALLOPURINOL 300 MG TAB PO SCH (10:39)
[2019-04-10] MEDS: HYDROcodone/APAP 5/325 MG 1 TAB TAB PO PRN (10:53)
--- NOTE | 2019-04-10 11:58 | NUR ---
Slag Worker Note: Basic Screen: Yes High Risk DC Screen [place]: WINSOME MEYERS Home Relationship: DAUGHTER Pre-Admission Living Arrangements: Lives Alone Prior ADL Independent Current Home Health Name/Tel: N/A Current DME/02 Name/Tel: N/A Current Hospice Name/Tel: N/A Current Dialysis Name/Tel: N/A Healthcare Decision Maker: Patient Advance Directive No - REFUSED Physician Orders for Life Sustaining Treatment Form No Patient/Family Have Educational Needs No Information Taught: Advance Directive Community Resources Person Taught: Patient Teaching Tools: Verbal Factors Affecting Learning: None Participation Level: Refused Evaluation: Verbalizes Understanding Needs Additional Education: No Discipline: Case Mgt/Social Svcs Tentative Discharge Plan/Destination: No Needs Identified Will require assistance post discharge: No Referred to Professional Fee Coder: No Tentative Discharge Plan Summary: Patient is a 68-year-old female admitted for dehydration. Patient has PMHX of non-hodgekins lymphoma, essential hypertension, coronary artery disease, and status-post stents. Patient was admitted from home where she lives alone. SW met with patient at bedside to verify demographics. Patient stated that she is ambulatory and is independent with her ADLs. Patient expressed concerns about living alone. Patient stated that she is able to move in with her daughter Winsome Meyers [phone]. SW offered assistance with providing assisted living resources, but patient refused. Patient stated she makes $936 a month. Patient stated she will most likely move in with her daughter. Patient's tentative discharge plan is to return home. No further needs identified. Signature: TOM Saravia Date: Apr 10, 2019 Time: 11:57
[2019-04-10 12:00] VITALS: BP 151/77
[2019-04-10 16:00] VITALS: BP 127/79
[2019-04-10] MEDS ORDERED: APAP/BUTAL/CAFF 325/50/40 MG 1 TAB PO PRN (17:00)
[2019-04-10] MEDS ORDERED: ALUMINUM HYD/MAG/SIMETHICONE 30 ML UDC PO SCH (17:16)
[2019-04-10] MEDS ORDERED: LIDOCAINE VISCOUS 2% 20 ML UDC PO SCH (17:17)
[2019-04-10] MEDS ORDERED: DICYCLOMINE HCL LIQUID 10 MG/5 ML UDC PO SCH (17:17)
--- NOTE | 2019-04-10 17:33 | NUR ---
PT C/O PAIN RATE OF 8/10 AND WAS GIVEN PAIN MEDICATION VIA IV PUSH. WILL RE-ASSESS PAIN.
[2019-04-10] MEDS ORDERED: SODIUM PHOSPHATE 15 MMOLE in NACL 0.9% 250 ML IV SCH (18:00)
--- NOTE | 2019-04-10 19:10 | NUR ---
ENDORSED PT TO OIL CHANGE TECHNICIAN NURSE, OTTO AND TERRANCE FOR CONTINUITY OF CARE.
--- NOTE | 2019-04-10 19:15 | NUR ---
RECIEVED PT FROM DAY NURSE WITH STABLE CONDITION, ALERT, AND ORIENTED X 4,BRP,RESP EVEN AND EASY,SATS 97%IN ROOM AIR, DENIES PAIN AT THIS TIME,NS@50CC INFUSING ON RFA,SR ON SKIP LOADER , PT COMPLAINE OF HAVING DIARRHEA WITH ABDOMINAL PAIN ON AND OFF,PLAN OF CARE DISCUSSED WITH PT AND VERBALIZED UNDERSTANDING, CALL LIGHT ON REACH,CONTINUE TO MONITOR PT.
[2019-04-10 20:06] VITALS: BP 113/71
[2019-04-10] MEDS ORDERED: VANCOMYCIN 1,000 MG in DEXTROSE 5% 250 ML IV SCH (21:00)
--- NOTE | 2019-04-10 21:30 | NUR ---
CALLED DR. SAGE .CALLED BACK. CLARIFIED ABOUT THE VANCO IV DOSE TONIGHT. HE SAID HE DC'D IT FOR HE DOESN'T WANT A DOSE TONIGHT.
[2019-04-10] MEDS: LEVOFLOXACIN 250 MG/D5 PREMIX 50 ML IV SCH (22:30)
[2019-04-11 00:50] VITALS: BP 136/65
[2019-04-11 04:00] VITALS: BP 133/68
[2019-04-11] MEDS: MORPHINE SULFATE 2 MG/ML SYR IVP PRN ×4 (04:14→21:38)
[2019-04-11 06:08] LABS: BASOPHILS % (AUTO) 0.3 % (0.0-2.0); EOSINOPHILS # (AUTO) 0.1 K/uL (0-0.4); EOSINOPHILS % (AUTO) 3.2 % (0.0-4.0); HEMATOCRIT 37.1 % (36-48); HEMOGLOBIN 11.7 g/dL (12.0-16.0); LYMPHOCYTES % (AUTO) 30.5 % (20.5-51.1); MEAN CORPUSCULAR HEMOGLOBIN 27 pg (27-31); MEAN CORPUSCULAR HGB CONC 32 g/dL (33-37); MONOCYTES # (AUTO) 0.4 K/uL (0.8-1.0); MONOCYTES % (AUTO) 11.9 % (1.7-9.3); NEUTROPHILS # (AUTO) 1.7 K/uL (1.8-7.7); NEUTROPHILS % (AUTO) 54.1 % (42.2-75.2); PLATELET COUNT (AUTO) 199 K/uL (140-450); RED BLOOD CELL COUNT(AUTO) 4.36 MIL/uL (4.20-5.40); RED CELL DISTRIBUTION WIDTH 14.8 % (11.6-13.7); WHITE BLOOD COUNT (AUTO) 3.1 K/uL (4.8-10.8)
--- NOTE | 2019-04-11 06:38 | NUR ---
IV SITE ON RT WRIST GOT INFILTRATED. TRIED SEVERAL TIMES BUT FAILED. CALLED ER NURSE ,YOLANDA AND ABLE TO GET A NEW IV ACCESS G#24 ON THE RT HAND . IVF INFUSING WELL.
--- NOTE | 2019-04-11 06:56 | NUR ---
PT SLEPT 5-6HRS, NEW IV STARTED ON RT HAND #24 BY ER NURSE,VITAL SIGN WNL ,ENDORSE TO DAY NURSE
[2019-04-11 07:04] LABS: ANION GAP 14.9 (8-16); CARBON DIOXIDE 22.2 mmol/L (21-32); POTASSIUM 3.1 mmol/L (3.5-5.1)
[2019-04-11 07:08] LABS: MAGNESIUM 1.7 mg/dL (1.8-2.4); PHOSPHORUS 3.4 mg/dL (2.5-4.9)
--- NOTE | 2019-04-11 07:10 | NUR ---
RECEIVED PT FROM PRINT PRODUCTION MANAGER NURSE, PT IS AWAKE AND IV LINE ON THE RT HAND G. 24 WITH D5NS INFUSING AT 30ML/HR, AOX4 ON ROOM AIR AND DENIES PAIN, AND NO SIGN OF DISTRESS NOTED, WILL MONITOR PT.
[2019-04-11 08:00] VITALS: BP 166/69
[2019-04-11] MEDS ORDERED: POTASSIUM CHLORIDE 10 MEQ TABER PO SCH (08:00)
[2019-04-11] MEDS: FLUTICASONE NASAL 50 MCG/ACTUATION 16 GM BTL NS SCH (08:36)
[2019-04-11] MEDS: SODIUM PHOS / POTASSIUM PHOS 1 PKT PDR PO SCH ×3 (08:36→21:37)
[2019-04-11] MEDS: LOSARTAN 50 MG TAB PO SCH (08:38)
[2019-04-11] MEDS: ALLOPURINOL 300 MG TAB PO SCH (08:38)
[2019-04-11] MEDS: OSELTAMIVIR PHOSPHATE 75 MG CAP PO SCH ×2 (08:38→21:38)
[2019-04-11] MEDS: FUROSEMIDE 20 MG TAB PO SCH (08:39)
[2019-04-11] MEDS: amLODIPine 5 MG TAB PO SCH (08:39)
[2019-04-11] MEDS: CLOPIDOGREL 75 MG TAB PO SCH (08:39)
--- NOTE | 2019-04-11 08:41 | NUR ---
PT WAS GIVEN THE SCHEDULED AM MEDICATIONS NOW, PARAMETER CHECKED, WILL MONITOR PT.
[2019-04-11] MEDS: DEXT 5% / NACL 0.9% 500 ML IV SCH ×2 (11:50→21:30)
[2019-04-11 12:00] VITALS: BP 159/84
--- NOTE | 2019-04-11 13:15 | NUR ---
FNS TALKING TO PT NOW REGARDING PT'S DIET AND PT RESPONDING APPROPRIATELY AND VERBALIZED UNDERSTANDING OF TEACHINGS.
--- NOTE | 2019-04-11 13:19 | NUR ---
PT WAS GIVEN PAIN MEDICATION VIA IV PUSH FOR C/O PAIN RATE OF 8/10 ON HER BODY, BP IS 145/96, PULSE IS 70, O2 SATURATION IS 96%. WILL RE-ASSESS PAIN AND MONITOR PT.
[2019-04-11 16:00] VITALS: BP 147/85
--- NOTE | 2019-04-11 16:32 | NUR ---
04/11/19 RD FOLLOW UP COMPLETED PLEASE REFER TO NUTRITION ASSESSMENT UNDER CARE ACTIVITY FOR ESTIMATED NUTRITIONAL NEEDS. 1. CONTINUE BRAT DIET TOLERATED 2. ENCOURAGE INCREASING PO INTAKE 3. CONSIDER TPN IF PT CONTINUES W/ ONGOING DIARRHEA AND POOR PO INTAKE <50% 4. RD TO FOLLOW-UP 2-3 DAYS, HIGH RISK COLBY BURROUGHS, RD
[2019-04-11] MEDS: HYDROcodone/APAP 5/325 MG 1 TAB TAB PO PRN (17:05)
--- NOTE | 2019-04-11 17:05 | NUR ---
PT WAS GIVEN PAIN MEDICATION PO FOR C/O PAIN RATE OF 6/10, WILL RE-ASSESS PAIN AND MONITOR PT.
[2019-04-11] MEDS: ALBUTEROL SULFATE/IPRATROPIU 3 ML SOL IH PRN ×2 (17:32→20:20)
--- NOTE | 2019-04-11 19:15 | NUR ---
ENDORSED PT FOR SUPERVISOR PRINT LINE NURSEMYKE FOR CONTINUITY OF CARE, PT IS FOR PICC LINE INSERTION AND PICC LINE NURSE IS IN THE UNIT.
--- NOTE | 2019-04-11 19:20 | NUR ---
RECEIVED REPORT FROM DAY SHIFT NURSE. AAOX4. NO SOB. ON ROOM AIR. DENIES PAIN. SKIN INTACT. PT HAS PORT A CATH ON RIGHT CHEST. PICC LINE NURSE IN THE ROOM TO INSERT PICC. SAFETY PRECAUTION IN PLACE. CALL LIGHT WITHIN REACH.
--- NOTE | 2019-04-11 19:55 | NUR ---
PICC LINE INSERTION DONE. X-RAY DONE. PICC TO RIGHT UPPER ARM, DOUBLE LUMEN. DRESSING CLEAN, DRY AND INTACT. PT TOLERATED PROCEDURE WELL. PT DENIES PAIN OR SOB.
[2019-04-11 20:00] VITALS: BP 132/86
--- NOTE | 2019-04-11 22:00 | NUR ---
REPORTED PT'S MAG LEVEL 1.[address] SEBASTIAN. NO NEW ORDER AT THIS TIME,
[2019-04-11 22:26] LABS: ANION GAP 15.1 (8-16); CARBON DIOXIDE 23.1 mmol/L (21-32); POTASSIUM 3.2 mmol/L (3.5-5.1)
[2019-04-11] MEDS: LEVOFLOXACIN 250 MG/D5 PREMIX 50 ML IV SCH (23:52)
--- NOTE | 2019-04-12 00:30 | NUR ---
PT SLEEPING. NO S/S OF PAIN OR SOB. PT KEPT COMFORTABLE.
[2019-04-12] MEDS: MORPHINE SULFATE 2 MG/ML SYR IVP PRN ×4 (03:01→20:19)
--- NOTE | 2019-04-12 03:05 | NUR ---
PT C/O OF GENERALIZED PAIN 10/26. MORPHINE 2 MG IVP GIVEN. ALL NEEDS ATTENDED AT THIS TIME.
[2019-04-12 04:00] VITALS: BP 139/69
--- NOTE | 2019-04-12 05:50 | NUR ---
PT SLEEPING BUT EASILY AROUSABLE. RESP EVEN AND UNLABORED. NO S/S OF PAIN OR DISCOMFORT. IVF INFUSING WELL.
[2019-04-12] MEDS: HYDROcodone/APAP 5/325 MG 1 TAB TAB PO PRN (06:19)
--- NOTE | 2019-04-12 07:14 | NUR ---
ENDORSED PT TO DAY SHIFT NURSE. PT IN STABLE CONDITION.
--- NOTE | 2019-04-12 07:15 | NUR ---
RECEIVE REPORT FROM NIGHT NURSE, PT IS STABLE, AA0X4, PICC LINE INTACT, RUNNING D5NS AT 50ML/H, INTRODUCE SELF, UPDATE WHITEBOARD, SAFETY MEASURES IN PLACE, CALL LIGHT WITHIN REACH.
[2019-04-12 08:00] VITALS: BP 178/97
[2019-04-12] MEDS: FLUTICASONE NASAL 50 MCG/ACTUATION 16 GM BTL NS SCH (08:30)
[2019-04-12] MEDS: SODIUM PHOS / POTASSIUM PHOS 1 PKT PDR PO SCH ×2 (08:31→20:59)
[2019-04-12] MEDS: OSELTAMIVIR PHOSPHATE 75 MG CAP PO SCH ×2 (08:31→21:02)
[2019-04-12] MEDS: CLOPIDOGREL 75 MG TAB PO SCH (08:32)
[2019-04-12] MEDS: amLODIPine 5 MG TAB PO SCH (08:32)
[2019-04-12] MEDS: FUROSEMIDE 20 MG TAB PO SCH (08:33)
[2019-04-12] MEDS: ALLOPURINOL 300 MG TAB PO SCH (08:33)
[2019-04-12] MEDS: LOSARTAN 50 MG TAB PO SCH (08:35)
--- NOTE | 2019-04-12 08:40 | NUR ---
GAVE PT ORDERED MEDICATION, EDUCATION GIVEN, PT VERBALIZE UNDERSTANDING, PT TOLERATED WELL, PT IS STABLE, CALL LIGHT WITHIN REACH.
[2019-04-12] MEDS: DEXT 5% / NACL 0.9% 500 ML IV SCH ×2 (08:47→17:30)
--- NOTE | 2019-04-12 08:48 | NUR ---
GAVE PT MORPHINE FOR SEVERE STOMACH PAIN OF 8/10, PT EDUCATION GIVEN, PT TOLERATED WELL, PT IS STABLE, CALL LIGHT WITHIN REACH.
[2019-04-12] MEDS ORDERED: KCL 20 MEQ/WATER INJ PREMIX 200 ML IV PRN (09:05)
--- NOTE | 2019-04-12 11:05 | NUR ---
PT WAS IS SITTING IN HER BED WATCHING TV, NO SIGNS OF DISTRESS NOTED, PT IS STABLE, CALL LIGHT WITHIN REACH.
[2019-04-12 12:00] VITALS: BP 156/81
--- NOTE | 2019-04-12 14:08 | NUR ---
GAVE PT MORPHINE FOR SEVERE STOMACH PAIN 10/26, PT STATES IT IS ACHY, PT EDUCATION GIVE, PT TOLERATED WELL, PT IS STABLE, CALL LIGHT WITHIN REACH.
[2019-04-12] MEDS: ALBUTEROL SULFATE/IPRATROPIU 3 ML SOL IH PRN ×2 (14:49→15:17)
[2019-04-12 16:00] VITALS: BP 142/81
[2019-04-12] MEDS: guaiFENesin 20 MG/ML UDC PO PRN (17:25)
--- NOTE | 2019-04-12 17:25 | NUR ---
GAVE PT ROBITUSSIN FOR COUGH, EDUCATION GIVEN, PT TOLERATED WELL, PT IS STABLE, CALL LIGHT WITHIN REACH
[2019-04-12] MEDS ORDERED: NACL 0.45% 1,000 ML IV SCH (18:05)
[2019-04-12] MEDS ORDERED: DEXT 5% /NACL 0.9% 1,000 ML IV SCH (18:45)
--- NOTE | 2019-04-12 19:08 | NUR ---
GAVE REPORT TO NIGHT NURSE FOR CONTINUITY OF CARE, PT IS STABLE.
--- NOTE | 2019-04-12 19:10 | NUR ---
RECEIVED REPORT FROM AM NURSE, PT IS STABLE, AA0X4, PT AMBULATORY. PICC LINE ON R UPPER ARM INTACT, RUNNING D5NS AT 50ML/H, PT C/O OF ABDOMINAL PAIN 10/26 WILL MEDICATE. SAFETY MEASURES IN PLACE, CALL LIGHT WITHIN REACH.
[2019-04-12 20:00] VITALS: BP 134/73
[2019-04-12] MEDS: LEVOFLOXACIN 250 MG/D5 PREMIX 50 ML IV SCH (23:17)
--- NOTE | 2019-04-12 23:40 | NUR ---
PT TRYING TO GET SOME SLEEP BUT GOES TO THE BATHROOM FOR DIARRHEA. WET AND MODERATE IN AMOUNT
[2019-04-13] VITALS: BP 124/53
[2019-04-13] MEDS: MORPHINE SULFATE 2 MG/ML SYR IVP PRN ×4 (00:51→20:58)
--- NOTE | 2019-04-13 00:51 | NUR ---
C.O OF ABDOMINAL PAIN 10/26. MEDICATED WITH MORPHINE. WILL REASSESS PATIENT
[2019-04-13] MEDS: DEXT 5% / NACL 0.9% 500 ML IV SCH (03:30)
[2019-04-13 04:00] VITALS: BP 146/84
--- NOTE | 2019-04-13 04:00 | NUR ---
PT C/O OF 6/10 ABD PAIN AND HEADACHE . ADMINISTERED MORPHINE. WILL REASSESS PAIN LATER
[2019-04-13] MEDS: HYDROcodone/APAP 5/325 MG 1 TAB TAB PO PRN (04:40)
--- NOTE | 2019-04-13 05:33 | NUR ---
PT C/O OF EDEMA ON THE BILATERAL ANKLES, INFORMED DR. DAHL
[2019-04-13] MEDS: ALBUTEROL SULFATE/IPRATROPIU 3 ML SOL IH PRN ×3 (07:06→21:59)
[2019-04-13 07:14] LABS: BASOPHILS % (AUTO) 0.4 % (0.0-2.0); EOSINOPHILS # (AUTO) 0.4 K/uL (0-0.4); EOSINOPHILS % (AUTO) 10.7 % (0.0-4.0); HEMATOCRIT 34.3 % (36-48); HEMOGLOBIN 11.1 g/dL (12.0-16.0); LYMPHOCYTES # (AUTO) 0.9 K/uL (2.5-16.5); LYMPHOCYTES % (AUTO) 28.2 % (20.5-51.1); MEAN CORPUSCULAR HEMOGLOBIN 27 pg (27-31); MEAN CORPUSCULAR HGB CONC 32 g/dL (33-37); MEAN CORPUSCULAR VOLUME 84.1 fL (80-94); MONOCYTES # (AUTO) 0.3 K/uL (0.8-1.0); MONOCYTES % (AUTO) 9.3 % (1.7-9.3); NEUTROPHILS # (AUTO) 1.7 K/uL (1.8-7.7); NEUTROPHILS % (AUTO) 51.4 % (42.2-75.2); PLATELET COUNT (AUTO) 218 K/uL (140-450); RED BLOOD CELL COUNT(AUTO) 4.08 MIL/uL (4.20-5.40); WHITE BLOOD COUNT (AUTO) 3.3 K/uL (4.8-10.8)
--- NOTE | 2019-04-13 07:21 | NUR ---
PT AWAKE, A, O X 4 AMBULATORY PT IN STABLE CONDITION WILL ENDORSE TO NEXT SHIFT.
--- NOTE | 2019-04-13 07:22 | NUR ---
RECEIVE BEDSIDE REPORT FROM NIGHT NURSE, PT AAOX4, PT IS STABLE, RESPIRATIONS ARE EVEN AND UNLABORED ON ROOM AIR, PT HAS RAHEEM PICC LINE RUNNING D5NS AT 50 ML/H, UPDATE WHITEBOARD, SAFETY MEASURES IN PLACE, CALL LIGHT WITHIN REACH.
[2019-04-13 07:50] LABS: ANION GAP 14.3 (8-16); CREATININE 0.9 mg/dL (0.6-1.3); POTASSIUM 3.3 mmol/L (3.5-5.1)
[2019-04-13 08:00] VITALS: BP 137/69
[2019-04-13] MEDS: SODIUM PHOS / POTASSIUM PHOS 1 PKT PDR PO SCH ×2 (08:35→20:57)
[2019-04-13] MEDS: CLOPIDOGREL 75 MG TAB PO SCH (08:35)
[2019-04-13] MEDS: LOSARTAN 50 MG TAB PO SCH (08:36)
[2019-04-13] MEDS: OSELTAMIVIR PHOSPHATE 75 MG CAP PO SCH ×2 (08:36→20:55)
[2019-04-13] MEDS: ALLOPURINOL 300 MG TAB PO SCH (08:36)
[2019-04-13] MEDS: FUROSEMIDE 20 MG TAB PO SCH (08:36)
[2019-04-13] MEDS: amLODIPine 5 MG TAB PO SCH (08:36)
[2019-04-13] MEDS: FLUTICASONE NASAL 50 MCG/ACTUATION 16 GM BTL NS SCH (08:37)
--- NOTE | 2019-04-13 08:50 | NUR ---
GAVE PT ORDERED MEDICATION, EDUCATION GIVEN, PT TOLERATED WELL. GAVE PT MORPHINE FOR STOMACH PAIN OF 8/10, SEVERE CRAMPING, PT IS STABLE, CALL LIGHT WITHIN REACH.
[2019-04-13] MEDS: NACL 0.9% 1,000 ML IV SCH (10:41)
--- NOTE | 2019-04-13 11:04 | NUR ---
PT ASLEEP IN BED, PT IS STABLE, NO SIGNS OF DISTRESS NOTED, RESPIRATIONS ARE EVEN AND UNLABORED ON ROOM AIR, CALL LIGHT WITHIN REACH.
[2019-04-13 12:00] VITALS: BP 166/83
[2019-04-13 13:37] LABS: MAGNESIUM 1.4 mg/dL (1.8-2.4); PHOSPHORUS 2.4 mg/dL (2.5-4.9)
--- NOTE | 2019-04-13 13:43 | NUR ---
PT RESTING IN BED EATING ICE CREAM, NO SIGNS OF DISTRESS NOTED, PT IS STABLE, CALL LIGHT WITHIN REACH.
[2019-04-13 16:00] VITALS: BP 147/85
--- NOTE | 2019-04-13 16:35 | NUR ---
GAVE PT MORPHINE FOR SEVERE PAIN OF STOMACH, 10/26,
--- NOTE | 2019-04-13 18:20 | NUR ---
PT RESTING IN BED, NO SIGNS OF DISTRESS NOTED, PT IS STABLE, CALL LIGHT WITHIN REACH.
--- NOTE | 2019-04-13 19:09 | NUR ---
GAVE REPORT TO NIGHT NURSE FOR CONTINUITY OF CARE, PT IS STABLE
--- NOTE | 2019-04-13 19:11 | NUR ---
OFERRED MOPRHINE FOR ABD OMINAL PAIN 10/26 SAID SHE WILL JUST ASK FOR IT LATER, DAUGHTER AT BEDSIDE
[2019-04-13 20:00] VITALS: BP 146/77
[2019-04-13] MEDS: LEVOFLOXACIN 250 MG/D5 PREMIX 50 ML IV SCH (22:39)
--- NOTE | 2019-04-13 22:47 | NUR ---
PT WENT TO BATHROOM. BM NOTED , ACCDG TO PATIENT STILL WATERY BUT LESS FREQUENT. WILL CONTINUE TO MONITOR
--- NOTE | 2019-04-13 23:15 | NUR ---
PT SLEEPING, NO COMPLAINTS AT THIS TIME
[2019-04-14] VITALS: BP 135/74
--- NOTE | 2019-04-14 02:41 | NUR ---
PT WENT TO BATHROOM ONCE STEADY GAIT, NO COMPLAINTS. SHE SAID SHE WAS ABLE TO SLEEP.
--- NOTE | 2019-04-14 03:48 | NUR ---
PT WENT TO BATHROOM , VOIDED. STEADY IN GAIT WILL CONTINUE TO MONITOR
[2019-04-14 04:00] VITALS: BP 127/89
[2019-04-14] MEDS: MORPHINE SULFATE 2 MG/ML SYR IVP PRN ×3 (04:02→18:12)
[2019-04-14] MEDS: NACL 0.9% 1,000 ML IV SCH (05:49)
--- NOTE | 2019-04-14 06:37 | NUR ---
PT AWAKE, ALERT ORIENTED X 4, AMBULATORY. PT IN STABLE CONDITION AT THIS TIME. NO RESPIRATORY DISTRESS. TOLERABLE PAIN NOTED. WILL ENDORSE TO NEXT SHIFT.
[2019-04-14 06:39] LABS: BASOPHILS % (AUTO) 0.2 % (0.0-2.0); EOSINOPHILS # (AUTO) 0.3 K/uL (0-0.4); HEMATOCRIT 35.2 % (36-48); HEMOGLOBIN 11.3 g/dL (12.0-16.0); LYMPHOCYTES # (AUTO) 0.8 K/uL (2.5-16.5); LYMPHOCYTES % (AUTO) 18.9 % (20.5-51.1); MEAN CORPUSCULAR HEMOGLOBIN 27 pg (27-31); MEAN CORPUSCULAR HGB CONC 32 g/dL (33-37); MEAN CORPUSCULAR VOLUME 84.2 fL (80-94); MONOCYTES # (AUTO) 0.4 K/uL (0.8-1.0); MONOCYTES % (AUTO) 11.2 % (1.7-9.3); NEUTROPHILS # (AUTO) 2.5 K/uL (1.8-7.7); NEUTROPHILS % (AUTO) 62.7 % (42.2-75.2); PLATELET COUNT (AUTO) 252 K/uL (140-450); RED BLOOD CELL COUNT(AUTO) 4.18 MIL/uL (4.20-5.40); RED CELL DISTRIBUTION WIDTH 14.8 % (11.6-13.7)
--- NOTE | 2019-04-14 06:44 | NUR ---
PT C/O OF CHEST TIGHTNESS ON LEFT CHEST RADIATING TO AXILLA 07/26. PT SAID PAIN IS DECREASING. WILL INFORM DR. BLANCHARD. WILL ENDORSE TO NEXT SHIFT THE CHEST TIGHTNESS
[2019-04-14 07:06] LABS: ANION GAP 14.3 (8-16); CARBON DIOXIDE 24.2 mmol/L (21-32); POTASSIUM 3.5 mmol/L (3.5-5.1)
--- NOTE | 2019-04-14 07:15 | NUR ---
RECEIVED PT FROM EXERCISE INSTRUCTOR NURSEWILLIAM, PT IS AWAKE AND SEATED ON THE BED WITH SIDE RAILS UP AND CALL LIGHT WITHIN REACH, PT IS ON DROPLET PRECAUTION, PROTOCOL INITIATED, HAS A PICC LINE ON THE RT UA ARM DOUBLE LUMEN, WITH IVF NS INFUSING AT 50ML/HR, ON ROOM AIR AND DENIES PAIN, RT UPPER CHEST TAISHA CATH IN PLACE, NO SIGN OF DISTRESS NOTED AND WILL CONTINUE TO MONITOR PT.
[2019-04-14 07:21] LABS: MAGNESIUM 1.4 mg/dL (1.8-2.4); PHOSPHORUS 3.2 mg/dL (2.5-4.9)
[2019-04-14 08:00] VITALS: BP 149/98
--- NOTE | 2019-04-14 08:49 | NUR ---
SPOKE TO AN AGENT FROM [facility], NAMED GONZALO AND SHE SAID THAT THE PT'S INSURANCE GAVE AN AUTHORIZATION TO TRANSFER THE PT TO A NURSING FACILITY, SHE SAID THAT THE PROVIDER'S LINE NO IS [phone], WITH CONFIRMATION NO. [id number], IF IN CASE VERIFICATION IS NEEDED. PT IS AWARE OF IT.
[2019-04-14] MEDS: SODIUM PHOS / POTASSIUM PHOS 1 PKT PDR PO SCH (09:10)
[2019-04-14] MEDS: CLOPIDOGREL 75 MG TAB PO SCH (09:10)
[2019-04-14] MEDS: FLUTICASONE NASAL 50 MCG/ACTUATION 16 GM BTL NS SCH (09:10)
[2019-04-14] MEDS: FUROSEMIDE 20 MG TAB PO SCH (09:11)
[2019-04-14] MEDS: amLODIPine 5 MG TAB PO SCH (09:11)
[2019-04-14] MEDS: LOSARTAN 50 MG TAB PO SCH (09:11)
--- NOTE | 2019-04-14 09:11 | NUR ---
PT WAS GIVEN THE SCHEDULED AM MEDICATIONS, PARAMETERS WERE CHECKED AND IS WITHIN NORMAL LIMIT TO ADMINISTER THE MEDICATIONS, PT TOLERATED IT, AND WILL CONTINUE TO MONITOR PT.
[2019-04-14] MEDS: ALLOPURINOL 300 MG TAB PO SCH (09:12)
[2019-04-14] MEDS: OSELTAMIVIR PHOSPHATE 75 MG CAP PO SCH (09:12)
--- NOTE | 2019-04-14 11:42 | NUR ---
PT C/O PAIN RATE OF 8/10 AND WAS GIVEN PAIN MEDICATION VIA IV PUSH, WILL RE-ASSESS PAIN AND MONITOR PT.
[2019-04-14 12:00] VITALS: BP 153/85
[2019-04-14] MEDS ORDERED: FLONAS NS (12:06)
[2019-04-14] MEDS ORDERED: ROB PO (12:06)
[2019-04-14] MEDS ORDERED: MAGNESIUM OXIDE 400 MG TAB PO SCH (12:30)
[2019-04-14] MEDS ORDERED: MAG SULF 2000 MG/WATER PREMIX 50 ML IV SCH (13:00)
[2019-04-14] MEDS ORDERED: MAG SULF 2000 MG/WATER PREMIX 50 ML IV ONE (14:05)
--- NOTE | 2019-04-14 14:23 | NUR ---
PT WAS GIVEN MAGNESIUM ORAL 800MG AND MAGNESIUM IV 2GM FOR MG LEVEL OF 1.4.
[2019-04-14] MEDS: HYDROcodone/APAP 5/325 MG 1 TAB TAB PO PRN ×2 (15:10→20:20)
[2019-04-14 16:00] VITALS: BP 158/87
--- NOTE | 2019-04-14 19:20 | NUR ---
ENDORSED PT TO STEEL POURER NURSE FOR CONTINUITY OF CARE AND DISCHARGED PROCESS.
--- NOTE | 2019-04-14 19:25 | NUR ---
RECEIVED PT IN STABLE CONDITION FROM AM NURSE. AWAKE.ALERT AND ORIENTED X4. ON TELE MONITOR. WITH NO C/O ANY DISCOMFORT AT THIS TIME. ON DROPLET PRECAUTION. PT AWARE. WITH PICC LINE ON THE RT UPPER ARM. TO BE DC'D BEFORE DISCHARGE HOME. WILL GIVE THE DISCHARGE PAPER AND INSTRUCTIONS ALREADY PREPARED BY AM NURSE. BED ON LOW POSITION. CALL LIGHT PLACED WITHIN REACH.
[2019-04-14] MEDS ORDERED: PNEUMOCOCCAL VACCINE 23 MCG/0.5 ML VIAL IMVAC SCH (20:10)
[2019-04-14] MEDS ORDERED: INFLUENZA VACCINE QUAD 0.5 ML SYR IMVAC PRN (20:10)
[2019-04-14 20:12] VITALS: BP 143/92
--- NOTE | 2019-04-14 20:35 | NUR ---
ALL DISCHARGE PAPERS GAVE TO PT AFTER INSTRUCTIONS WERE GIVEN. PT VERBALIZED UNDERSTANDING AND SIGNED THE PAPERS. PT AWARE ABOUT THE PCP APPOINTMENT ON Sun04/16/19 0900. AND HOME HEALTH TO TAKE CARE OF PT FOR AMBULATION.
--- NOTE | 2019-04-14 20:45 | NUR ---
PICC LINE DISCONTINUED PER MD SAHNI. NO BLEEDING NOTED. DRESSING IN PLACED. ALSO TELE MONITOR DC'D.
--- NOTE | 2019-04-14 21:01 | NUR ---
BOTH PNEUMONIA AND FLU VACCINE GIVEN TO PT PER PT'S REQUEST
--- NOTE | 2019-04-14 21:05 | NUR ---
GRAND DAUGHTER CAME TO FABRIC WORKER FOREMAN PT. WHEELED TO FAMILY CAR ACCOMPANIED BY GRAPHIC ARTS TECHNICIAN WITH ALL THE PERSONAL BELONGINGS WITH PT. ID BAND AND ALLERGY BAND REMOVED. PT IN STABLE CONDITION UPON DISCHARGE.
== END 2019-04-14 21:05 | disposition home health service (06) | DRG 371 ==
LOC: MED 21:29 → MMU 23:55 → OBSVTOIN 04-10 06:25 → MMU 04-12 10:15
PROVIDERS: ADMIT General Practice; ATTEND General Practice
PROC: 02HV33Z Insertion of Infusion Device into Superior Vena Cava, Percutaneous Approach (ICD-10-PCS; principal; 2019-04-11)
PROC: B548ZZA Ultrasonography of Superior Vena Cava, Guidance (ICD-10-PCS; 2019-04-11)
DX: A04.9 Bacterial intestinal infection, unspecified (principal); N17.0 Acute kidney failure with tubular necrosis; C85.90 Non-Hodgkin lymphoma, unspecified, unspecified site; E66.9 Obesity, unspecified; I25.10 Atherosclerotic heart disease of native coronary artery without angina pectoris; J11.1 Influenza due to unidentified influenza virus with other respiratory manifestations; E86.0 Dehydration; E87.6 Hypokalemia; E83.39 Other disorders of phosphorus metabolism; E83.42 Hypomagnesemia; M19.90 Unspecified osteoarthritis, unspecified site; I11.0 Hypertensive heart disease with heart failure; I50.9 Heart failure, unspecified; J30.9 Allergic rhinitis, unspecified; R07.89 Other chest pain; A08.4 Viral intestinal infection, unspecified; Z87.891 Personal history of nicotine dependence; Z90.49 Acquired absence of other specified parts of digestive tract; Z90.5 Acquired absence of kidney; Z90.710 Acquired absence of both cervix and uterus; Z91.013 Allergy to seafood; Z88.5 Allergy status to narcotic agent; Z88.8 Allergy status to other drugs, medicaments and biological substances; Z91.041 Radiographic dye allergy status; Z92.21 Personal history of antineoplastic chemotherapy; Z92.3 Personal history of irradiation; Z95.5 Presence of coronary angioplasty implant and graft; Z83.3 Family history of diabetes mellitus; Z68.37 Body mass index [BMI] 37.0-37.9, adult
CPT/HCPCS: 96365; 96367; 99285; G0378; 36415; 71045; 76881; 80048; 80053; 81003; 82150; 82272; 83036; 83605; 83615; 83690; 83735; 84100; 84132; 84134; 84443; 84484; 85025; 85610; 85730; 87015; 87040; 87045; 87070; 87081; 87086; 87177; 87804; 89055; 90732; 93005; 94640; 97161-GP; C1751; J0360; J1644; J1956; J2001; J2270; J3370; J3475; J3480; J3490; J7030; J7042; J7060; J7620; Q0092

== ENCOUNTER 2019-07-04 15:39 | Inpatient (IN) | payer MEDICARE, MEDICAID ==
[~2019-07-04] VITALS: Ht 154.9 cm; Wt 88.0 kg
[~2019-07-04 15:39] MED LIST changes: -AMLO10TA PO; +AMLO5TAB5 PO; -ASPI81EC98 PO; -ATOR10TA PO; -CLOB-114 TP; -CLON0.2T43 PO; +CLOP75TA26 PO; -CLOP75TA55 PO; -DOCU-299 PO; +FLONAS NS; -HYDR-3233 PO; -HYDR-5122 PO; -HYDR1TAB22 PO; -LON2.5 PO; -LORA-476 PO; +LOSA50TA66 PO; -METO100T98 PO; +ROB PO; -SERT25TA PO; +ZYL300 PO
[2019-07-04 15:51] VITALS: BP 178/100
[2019-07-04] MEDS ORDERED: KETOROLAC 30 MG/ML VIAL IVP ONE (16:20)
--- NOTE | 2019-07-04 16:48 | NUR ---
RADIOLOGY AT BEDSIDE
--- NOTE | 2019-07-04 16:52 | NUR ---
68 Y/O FEMALE FROM HOME C/O CHEST PAIN, HEADACHE, INCREASED BLOOD PRESSURE, AND FATIGUE THAT STARTED LAST NIGHT. PT STATES IT WAS SUDDEN ONSET, INTERMITTENT, 7/10 SHARP PAIN. RR EVEN AND UNLABORED, NO ACCESSORY MUSCLE USE. PT STATES PAIN IS TOLERABLE AT THIS TIME. HAS HAD EXTENSIVE CARDIAC HISTORY IN THE PAST. PT PLACED ON THE MONITOR.
--- NOTE | 2019-07-04 17:03 | NUR ---
PT AMBULATED TO RESTROOM FOR COLLECTION OF URINE
--- NOTE | 2019-07-04 17:07 | NUR ---
URINE COLLECTED FROM PT AND GIVEN TO LAB
--- NOTE | 2019-07-04 17:16 | NUR ---
RESPIRATORY AT BEDSIDE FOR ABG DRAW
[2019-07-04 17:29] LABS: BASOPHILS # (AUTO) 0.1 K/uL (0.00-0.22); BASOPHILS % (AUTO) 1.5 % (0.0-2.0); EOSINOPHILS # (AUTO) 0.5 K/uL (0-0.4); EOSINOPHILS % (AUTO) 7.9 % (0.0-4.0); HEMATOCRIT 37.1 % (36-48); HEMOGLOBIN 11.9 g/dL (12.0-16.0); LYMPHOCYTES # (AUTO) 1.3 K/uL (2.5-16.5); LYMPHOCYTES % (AUTO) 19.6 % (20.5-51.1); MEAN CORPUSCULAR HEMOGLOBIN 26 pg (27-31); MEAN CORPUSCULAR HGB CONC 32 g/dL (33-37); MEAN CORPUSCULAR VOLUME 80.4 fL (80-94); MONOCYTES # (AUTO) 0.7 K/uL (0.8-1.0); MONOCYTES % (AUTO) 10.3 % (1.7-9.3); NEUTROPHILS # (AUTO) 3.9 K/uL (1.8-7.7); NEUTROPHILS % (AUTO) 60.7 % (42.2-75.2); PLATELET COUNT (AUTO) 284 K/uL (140-450); RED BLOOD CELL COUNT(AUTO) 4.61 MIL/uL (4.20-5.40); RED CELL DISTRIBUTION WIDTH 17.3 % (11.6-13.7); WHITE BLOOD COUNT (AUTO) 6.4 K/uL (4.8-10.8)
[2019-07-04 17:30] LABS: APPEARANCE,URINE CLEAR (CLEAR); BILIRUBIN,URINE NEGATIVE (NEGATIVE); BLOOD, URINE NEGATIVE (NEGATIVE); COLOR,URINE ORANGE (YELLOW); LEUKOCYTE ESTERASE ,URINE NEGATIVE (NEGATIVE); NITRITE, URINE NEGATIVE (NEGATIVE); PH,URINE 6.5 (5.0-9.0); UGLUCOSE NEGATIVE (NEGATIVE)
[2019-07-04] MEDS ORDERED: NITROGLYCERIN 2% 1 GM PKT TP ONE (17:30)
[2019-07-04] MEDS ORDERED: ASPIRIN 81 MG TAB.CHEW PO ONE (17:30)
[2019-07-04 17:45] LABS: PROTHROMBIN TIME 9.9 secs (10.8-13.4)
[2019-07-04 17:46] LABS: ALBUMIN 3.6 g/dL (3.4-5.0); CARBON DIOXIDE 27.2 mmol/L (21-32); CREATININE 1.2 mg/dL (0.6-1.3); POTASSIUM 4.2 mmol/L (3.5-5.1); TOTAL BILIRUBIN 0.4 mg/dL (0.0-1.0)
[2019-07-04] MEDS ORDERED: KETOROLAC 30 MG/ML VIAL ONE (17:58)
[2019-07-04] MEDS ORDERED: DOCUSATE SODIUM 100 MG GELCAP PO PRN (18:05)
[2019-07-04] MEDS ORDERED: NITROGLYCERIN 0.4 MG TAB SL PRN (18:05)
[2019-07-04] MEDS ORDERED: hydrALAZINE 20 MG/ML VIAL IVP ONE (18:05)
[2019-07-04] MEDS ORDERED: ONDANSETRON 4 MG/2 ML VIAL IM/IVP PRN (18:05)
[2019-07-04] MEDS ORDERED: ACETAMINOPHEN 325 MG TAB PO PRN (18:05)
--- NOTE | 2019-07-04 18:21 | NUR ---
HOB ELEVATED, RR EVEN AND UNLABORED. STATES SLIGHT DECREASE IN PAIN. WILL CONTINUE TO MONITOR
--- NOTE | 2019-07-04 18:55 | NUR ---
RECEIVED PATIENT FROM ED NURSE FOR CONTINUITY OF CARE. AAOX4, TUNISIAN SPEAKING. PATIENT C/O OF HEADACHE 07/26. RESPIRATIONS EVEN AND UNLABORED, ROOM AIR. DENIES SOB. VISIBLE CHEST RISE AND FALL NOTED. DX CHEST PAIN. SHE HAS LEFT NITRO PATCH FROM ED. DENIES ANY CHEST PAIN AT THIS MOMENT. ON TELE MONITORING. ABDOMEN SOFT, ROUND, AND NONTENDER. SKIN WARM, DRY, AND INTACT. . IV SITE IN THE RIGHT HAND GAUGE 22, SALINE LOCK. PATIENT IS AMBULATORY. BED IN LOW POSITION. CALL LIGHT IS WITHIN REACH. WILL CONTINUE TO MONITOR. WILL ENDORSE TO THE SALES FLOOR MANAGER NURSE FOR FULL ADMISSION PROCESS.
--- NOTE | 2019-07-04 18:58 | NUR ---
Patient will be admitted to care of dr felton. Admited to tele. Will go to room 107b. Belongings list completed. Report to ayana Dietz.
--- NOTE | 2019-07-04 19:04 | NUR ---
VS: BP: 179/84, HR: 76, O2SAT 97% ROOM AIR, TEMP: 98.1 TEMPORAL, RESPIRATION 19, UNLABORED.
--- NOTE | 2019-07-04 19:07 | NUR ---
RECEIVED PATIENT FROM AM SHIFT NURSE IN STABLE CONDITION FOR CONTINUITY OF CARE. AAXOX4. RESPIRATIONS EVEN, UNLABORED. SKIN WARM, DRY. SKIN ASSESSMENT COMPLETE. SKIN INTACT. IV SITE TO RIGHT HAND 22G, PATENT/INTACT. MRSA SCREEN COMPLETED. ORIENTED PATIENT TO ROOM/STAFF/CALL LIGHT. C/O CHEST PAIN, WILL MEDICATE ORDERED. NO S/SX ACUTE DISTRESS. CALL LIGHT WITHIN REACH. WILL CONTINUE TO MONITOR.
[2019-07-04 19:20] LABS: PHOSPHORUS 3.6 mg/dL (2.5-4.9); THYROID STIMULATING HORMONE 4.39 uIU/mL (0.34-3.74)
[2019-07-04] MEDS: NACL 0.9% 1,000 ML IV SCH (19:30)
[2019-07-04] MEDS ORDERED: INSULIN LISPRO SLIDING SCALE 100 UNITS/ML VIAL SUBQ PRN (19:55)
[2019-07-04] MEDS ORDERED: DEXTROSE 50% 50 ML SYR IVP PRN (19:55)
[2019-07-04 20:00] VITALS: BP 179/84
[2019-07-04] MEDS: MORPHINE SULFATE 2 MG/ML SYR IVP PRN (20:32)
[2019-07-04] MEDS: METOPROLOL 25 MG TAB PO SCH (20:32)
[2019-07-04] MEDS: ATORVASTATIN 20 MG TAB PO SCH (20:32)
--- NOTE | 2019-07-04 20:32 | NUR ---
PATIENT C/O PRESSURE LIKE CHEST PAIN 10/26. MEDICATED ORDERED. CALL LIGHT WITHIN REACH. WILL CONTINUE TO MONITOR.
[2019-07-04] MEDS ORDERED: BLOOD GLUCOSE MONITORING 1 DEV DEV FS SCH (21:00)
--- NOTE | 2019-07-04 21:32 | NUR ---
REASSESSED PATIENT'S PAIN AT 2/10, TOLERABLE PAIN LEVEL. PATIENT EATING DINNER AT THIS TIME. NO S/SX ACUTE DISTRESS. CALL LIGHT WITHIN REACH. WILL CONTINUE TO MONITOR.
--- NOTE | 2019-07-04 23:30 | NUR ---
PATIENT RESTING COMFORTABLY IN BED. NO C/O PAIN. NO S/SX ACUTE DISTRESS. CONTINUES IN STABLE CONDITION. CALL LIGHT WITHIN REACH. WILL CONTINUE TO MONITOR.
[2019-07-05] VITALS: BP 126/69
[2019-07-05] MEDS: HYDROcodone/APAP 5/325 MG 1 TAB TAB PO PRN ×2 (01:15→08:14)
--- NOTE | 2019-07-05 01:15 | NUR ---
PATIENT C/O ACHING HEADACHE 08/26. MEDICATED ORDERED. CALL LIGHT WITHIN REACH. WILL CONTINUE TO MONITOR.
[2019-07-05] MEDS ORDERED: ALBUTEROL SULFATE/IPRATROPIU 3 ML SOL IH PRN (01:20)
--- NOTE | 2019-07-05 02:15 | NUR ---
REASSESSED PATIENT'S PAIN LEVEL AT 2/10, TOLERABLE AT THIS TIME. CALL LIGHT WITHIN REACH. WILL CONTINUE TO MONITOR.
[2019-07-05] MEDS: MORPHINE SULFATE 2 MG/ML SYR IVP PRN ×3 (03:12→21:19)
--- NOTE | 2019-07-05 03:12 | NUR ---
PATIENT C/O ACHING, THROBBING HEADACHE 10/26. MEDICATED ORDERED. PROVIDED EDUCATION REGARDING PAIN MANAGEMENT, PATIENT VERBALIZED UNDERSTANDING. CALL LIGHT WITHIN REACH. WILL CONTINUE TO MONITOR.
[2019-07-05 04:00] VITALS: BP 156/59
--- NOTE | 2019-07-05 04:12 | NUR ---
REASSESSED PAIN LEVEL AT 0/10. NO S/SX ACUTE DISTRESS. CALL LIGHT WITHIN REACH. WILL CONTINUE TO MONITOR.
--- NOTE | 2019-07-05 05:20 | NUR ---
PATIENT AWAKE AND IN STABLE CONDITION. NO C/O PAIN. NO S/SX ACUTE DISTRESS. CALL LIGHT WITHIN REACH. WILL CONTINUE TO MONITOR.
--- NOTE | 2019-07-05 07:17 | NUR ---
ENDORSED PATIENT IN STABLE CONDITION TO AM SHIFT NURSE FOR CONTINUITY OF CARE.
--- NOTE | 2019-07-05 07:17 | NUR ---
RECEIVED REPORT FROM DIABETES CLINICAL MANAGER NURSE MILLI-RN. PT RESTING IN BED, AOX4, ON ROOM AIR, HAS WALKER AND IS AMBULATORY WITHOUT ASSISTANCE TO BATHROOM, SKIN INTACT. IV ON RIGHT HAND #22G RUNNING NS @ 60ML/HR. ALSO HAS RIGHT GEORGE CATH FOR CHEMO ONLY. DISCUSSED PLAN OF CARE AND PT VERBALIZED UNDERSTANDING. NO S/S OF RESPIRATORY DISTRESS OR DISCOMFORT NOTED AT THIS TIME. WILL CONTINUE TO MONITOR.
[2019-07-05 07:23] LABS: ANION GAP 12.1 (8-16); CREATININE 1.2 mg/dL (0.6-1.3); POTASSIUM 4.1 mmol/L (3.5-5.1)
[2019-07-05 07:24] LABS: BASOPHILS # (AUTO) 0.1 K/uL (0.00-0.22); EOSINOPHILS # (AUTO) 0.6 K/uL (0-0.4); EOSINOPHILS % (AUTO) 9.8 % (0.0-4.0); HEMATOCRIT 36.5 % (36-48); HEMOGLOBIN 11.6 g/dL (12.0-16.0); LYMPHOCYTES # (AUTO) 1.2 K/uL (2.5-16.5); LYMPHOCYTES % (AUTO) 18.3 % (20.5-51.1); MEAN CORPUSCULAR HEMOGLOBIN 26 pg (27-31); MEAN CORPUSCULAR HGB CONC 32 g/dL (33-37); MEAN CORPUSCULAR VOLUME 80.8 fL (80-94); MONOCYTES # (AUTO) 0.5 K/uL (0.8-1.0); MONOCYTES % (AUTO) 8.2 % (1.7-9.3); NEUTROPHILS % (AUTO) 61.7 % (42.2-75.2); PLATELET COUNT (AUTO) 274 K/uL (140-450); RED BLOOD CELL COUNT(AUTO) 4.52 MIL/uL (4.20-5.40); RED CELL DISTRIBUTION WIDTH 17.3 % (11.6-13.7); WHITE BLOOD COUNT (AUTO) 6.4 K/uL (4.8-10.8)
[2019-07-05 07:32] LABS: CHOL/HDL RATIO 7.7 (1-4.5)
[2019-07-05 08:00] VITALS: BP 154/61
[2019-07-05] MEDS: FERROUS SULFATE 325 MG TABEC PO SCH ×2 (08:10→16:14)
[2019-07-05] MEDS: ASPIRIN 81 MG TAB.CHEW PO SCH (08:11)
[2019-07-05] MEDS: LOSARTAN 50 MG TAB PO SCH (08:11)
[2019-07-05] MEDS: METOPROLOL 25 MG TAB PO SCH ×2 (08:12→20:09)
[2019-07-05] MEDS: FUROSEMIDE 20 MG TAB PO SCH (08:12)
[2019-07-05] MEDS: ASCORBIC ACID 500 MG TAB PO SCH (08:13)
[2019-07-05] MEDS: amLODIPine 5 MG TAB PO SCH (08:13)
[2019-07-05] MEDS: ALLOPURINOL 300 MG TAB PO SCH (08:14)
[2019-07-05] MEDS: CLOPIDOGREL 75 MG TAB PO SCH (08:15)
--- NOTE | 2019-07-05 08:15 | NUR ---
SCHEDULED MEDICATIONS GIVEN AND TOLERATED WELL. BP 146/64, HR 74. PAIN 6/10 AND MEDICATED WITH NORCO. PT TOLERATED WELL. NO S/S OF RESPIRATORY DISTRESS OR DISCOMFORT NOTED AT THIS TIME. WILL CONTINUE TO MONITOR.
--- NOTE | 2019-07-05 10:30 | NUR ---
PT RESTING IN BED. NO S/S OF RESPIRATORY DISTRESS OR DISCOMFORT NOTED AT THIS TIME. WILL CONTINUE TO MONITOR.
[2019-07-05] MEDS: NACL 0.9% 1,000 ML IV SCH ×2 (10:45→14:27)
--- NOTE | 2019-07-05 11:28 | NUR ---
DISCHARGE PLANNING: THIS IS A 68 Y/O FEMALE PATIENT FROM HOME, WHO CAME IN DUE TO CHEST PAIN AND MILD SOB. PAST MEDICAL HISTORY INCLUDE HTN, GOUT, NEUROPATHY, CHRONIC BACK PAIN, CHD, CAD AND NON HODGKIN'S LYMPHOMA. INITIAL DIAGNOSIS OF CHEST PAIN. TROP NORMAL. CXR NORMAL. ON PLAVIX AND FUROSEMIDE PO. CARDIO CONSULT IN PLACE - NOT SEEN YET. DC PLAN BACK TO HOME ONCE STABLE. Addendum: 07/05/19 at 7143 by Clair Jung CM CONTACTED JERI MYERS AT [phone], INFORMED HER OF THE ADMISSION. SHE STATED OK AND HANG UP. CLINICALS AND POST STABILIZATION FORM FAXED TO [phone]. Addendum: 07/05/19 at 9824 by Clair Jung CM CONTACTED PATIENT'S DAUGHTER GORDON BARBER AT [phone], HOWEVER IT WAS WRONG NUMBER. CONTACTED PATIENT AT [phone], SHE STATED HER EMERGENCY UNDERGRADUATE INTERN NOW IS HER GRAND DAUGHTER CHUCK WETZEL AT [phone] BECAUSE HE DAUGHTER GORDON JUST GAVE AND IT IS HER FOR HER TO TAKE CARE OF THE PATIENT.
--- NOTE | 2019-07-05 11:37 | NUR ---
PT C/O PAIN 09/25- MEDICATED WITH MORPHINE. NO S/S OF RESPIRATORY DISTRESS OR DISCOMFORT NOTED AT THIS TIME. WILL CONTINUE TO MONITOR.
[2019-07-05 12:00] VITALS: BP 146/64
--- NOTE | 2019-07-05 13:30 | NUR ---
PT RESTING IN BED. NO S/S OF RESPIRATORY DISTRESS OR DISCOMFORT NOTED AT THIS TIME. WILL CONTINUE TO MONITOR.
--- NOTE | 2019-07-05 15:30 | NUR ---
PT RESTING IN BED. NO S/S OF RESPIRATORY DISTRESS OR DISCOMFORT NOTED AT THIS TIME. WILL CONTINUE TO MONITOR.
[2019-07-05 16:00] VITALS: BP 129/69
[2019-07-05] MEDS ORDERED: SUMAtriptan 25 MG TAB PO SCH (16:00)
--- NOTE | 2019-07-05 16:14 | NUR ---
SCHEDULED MEDICATIONS GIVEN AND TOLERATED WELL. NO S/S OF RESPIRATORY DISTRESS OR DISCOMFORT NOTED AT THIS TIME. WILL CONTINUE TO MONITOR.
[2019-07-05] MEDS ORDERED: FERROUS SULFATE 325 MG TABEC PO SCH (17:00)
--- NOTE | 2019-07-05 19:15 | NUR ---
RECEIVED PATIENT IN STABLE CONDITION FROM AM SHIFT NURSE FOR CONTINUITY OF CARE. TELE PATIENT. AAOX4. RESPIRATIONS EVEN, UNLABORED. SKIN WARM, DRY. IV SITE NOTED TO RIGHT HAND 22G PATENT/INTACT, INFUSING FLUIDS WELL. NO C/O PAIN. NO S/SX ACUTE DISTRESS. CALL LIGHT WITHIN REACH. WILL CONTINUE TO MONITOR.
[2019-07-05 20:00] VITALS: BP 160/74
[2019-07-05] MEDS: ATORVASTATIN 20 MG TAB PO SCH (20:09)
--- NOTE | 2019-07-05 21:19 | NUR ---
PATIENT C/O ACHING HEADACHE 09/25. MEDICATED ORDERED. PROVIDED EDUCATION REGARDING PAIN MANAGEMENT TO PATIENT, PATIENT VERBALIZED UNDERSTANDING. CALL LIGHT WITHIN REACH. WILL CONTINUE TO MONITOR.
--- NOTE | 2019-07-05 22:19 | NUR ---
REASSESSED PATIENT'S PAIN LEVEL. PATIENT ASLEEP. NO S/SX ACUTE DISTRESS. CALL LIGHT WITHIN REACH. WILL CONTINUE TO MONITOR.
--- NOTE | 2019-07-05 23:19 | NUR ---
PATIENT ASLEEP AND IN STABLE CONDITION. NO S/SX ACUTE DISTRESS. CALL LIGHT WITHIN REACH. WILL CONTINUE TO MONITOR.
[2019-07-06] VITALS: BP 134/83
--- NOTE | 2019-07-06 01:14 | NUR ---
MADE ROUNDS. PATIENT ASLEEP AND IN STABLE CONDITION. NO C/O PAIN. NO S/SX ACUTE DISTRESS. CALL LIGHT WITHIN REACH. WILL CONTINUE TO MONITOR.
[2019-07-06] MEDS: HYDROcodone/APAP 5/325 MG 1 TAB TAB PO PRN (01:59)
--- NOTE | 2019-07-06 01:59 | NUR ---
PATIENT C/O ACHING HEADACHE 08/26. MEDICATED ORDERED. CALL LIGHT WITHIN REACH. WILL CONTINUE TO MONITOR.
--- NOTE | 2019-07-06 02:59 | NUR ---
REASSESSED PAIN LEVEL AT 2/10, TOLERABLE PAIN LEVEL FOR PATIENT. NO S/SX ACUTE DISTRESS. CALL LIGHT WITHIN REACH. WILL CONTINUE TO MONITOR.
--- NOTE | 2019-07-06 03:04 | NUR ---
PATIENT IS AWAKE AND IN STABLE CONDITION. NO C/O PAIN. NO S/SX ACUTE DISTRESS. CALL LIGHT WITHIN REACH. WILL CONTINUE TO MONITOR.
[2019-07-06 04:00] VITALS: BP 156/76
--- NOTE | 2019-07-06 05:25 | NUR ---
PATIENT CONTINUES IN STABLE CONDITION. NO C/O PAIN. NO S/SX ACUTE DISTRESS. CALL LIGHT WITHIN REACH. WILL CONTINUE TO MONITOR.
[2019-07-06] MEDS: NACL 0.9% 1,000 ML IV SCH (06:10)
--- NOTE | 2019-07-06 06:29 | NUR ---
PATIENT HAS BEEN SCREENED AND CATEGORIZED HIGH NUTRITION RISK. PATIENT WILL BE SEEN WITHIN 1-2 DAYS OF ADMISSION. 07/05/19-07/06/19 VINITA PERALTA MS, RDN
--- NOTE | 2019-07-06 07:15 | NUR ---
ENDORSED TO AM SHIFT NURSE FOR CONTINUITY OF CARE.
--- NOTE | 2019-07-06 07:16 | NUR ---
RECEIVED REPORT FROM POWER BRAKE OPERATOR NURSE MILLI FOR CONTINUITY OF CARE. PATIENT IN STABLE CONDITION. RESPIRATIONS EVEN AND UNLABORED. IV INTACT AND PATENT. SAFETY MEASURES IN PLACE. BED IN LOW POSITION. BED ALARM ON. CALL LIGHT AT BEDSIDE. WILL CONTINUE TO MONITOR.
[2019-07-06 07:32] LABS: BASOPHILS # (AUTO) 0.1 K/uL (0.00-0.22); BASOPHILS % (AUTO) 2.1 % (0.0-2.0); EOSINOPHILS # (AUTO) 0.7 K/uL (0-0.4); HEMATOCRIT 36.2 % (36-48); HEMOGLOBIN 11.5 g/dL (12.0-16.0); LYMPHOCYTES # (AUTO) 1.1 K/uL (2.5-16.5); LYMPHOCYTES % (AUTO) 20.3 % (20.5-51.1); MEAN CORPUSCULAR HEMOGLOBIN 26 pg (27-31); MEAN CORPUSCULAR HGB CONC 32 g/dL (33-37); MEAN CORPUSCULAR VOLUME 80.7 fL (80-94); MONOCYTES # (AUTO) 0.4 K/uL (0.8-1.0); MONOCYTES % (AUTO) 7.6 % (1.7-9.3); NEUTROPHILS # (AUTO) 3.1 K/uL (1.8-7.7); PLATELET COUNT (AUTO) 284 K/uL (140-450); RED BLOOD CELL COUNT(AUTO) 4.49 MIL/uL (4.20-5.40); RED CELL DISTRIBUTION WIDTH 17.4 % (11.6-13.7); WHITE BLOOD COUNT (AUTO) 5.4 K/uL (4.8-10.8)
[2019-07-06 07:34] LABS: ANION GAP 12.1 (8-16); CARBON DIOXIDE 25.3 mmol/L (21-32); CREATININE 1.2 mg/dL (0.6-1.3); POTASSIUM 4.4 mmol/L (3.5-5.1)
[2019-07-06 07:35] LABS: PHOSPHORUS 3.7 mg/dL (2.5-4.9)
[2019-07-06 08:00] VITALS: BP 149/68
--- NOTE | 2019-07-06 08:15 | NUR ---
OFF UNIT FOR HEAD CT. PATIENT IN STABLE CONDITION.
--- NOTE | 2019-07-06 08:40 | NUR ---
BACK ON UNIT AFTER HEAD CT. PATIENT IN STABLE CONDITION.
[2019-07-06] MEDS: FUROSEMIDE 20 MG TAB PO SCH (09:05)
[2019-07-06] MEDS: FERROUS SULFATE 325 MG TABEC PO SCH ×2 (09:06→16:19)
[2019-07-06] MEDS: LOSARTAN 50 MG TAB PO SCH (09:06)
[2019-07-06] MEDS: ASCORBIC ACID 500 MG TAB PO SCH (09:06)
[2019-07-06] MEDS: METOPROLOL 25 MG TAB PO SCH (09:06)
[2019-07-06] MEDS: amLODIPine 5 MG TAB PO SCH (09:06)
[2019-07-06] MEDS: ASPIRIN 81 MG TAB.CHEW PO SCH (09:07)
[2019-07-06] MEDS: ALLOPURINOL 300 MG TAB PO SCH (09:07)
[2019-07-06] MEDS: CLOPIDOGREL 75 MG TAB PO SCH (09:07)
--- NOTE | 2019-07-06 09:07 | NUR ---
GAVE ORDERED DUE MEDICATIONS AT THIS TIME. PT TOLERATED WELL. BED IN LOW POSITION. CALL LIGHT AT BEDSIDE. WILL CONTINUE TO MONITOR.
[2019-07-06 09:21] LABS: FOLIC ACID 6.4 ng/mL (>3.0)
--- NOTE | 2019-07-06 10:16 | NUR ---
(07/06/19) RD INITIAL ASSESSMENT COMPLETED PLEASE REFER TO NUTRITION ASSESSMENT UNDER CARE ACTIVITY FOR ESTIMATED NUTRITIONAL NEEDS. RD RECOMMENDATIONS: 1. CONTINUE ON CARDIAC DIET TOLERATED. 2. CONSULT RDN PRN. 3. RD WILL F/U 3-5 DAYS; MODERATE RISK. VINITA PERALTA MS, RDN
[2019-07-06] MEDS ORDERED: FLO44 IH (10:35)
[2019-07-06] MEDS ORDERED: IMI25 PO (10:35)
[2019-07-06] MEDS ORDERED: APAP/BUTAL/CAFF 325/50/40 MG 1 TAB PO SCH ×2 (11:00→16:30)
--- NOTE | 2019-07-06 11:22 | NUR ---
PT SLEEPING AT THIS TIME. BED IN LOW POSITION. BED ALARM ON. CALL LIGHT AT BEDSIDE. WILL CONTINUE TO MONITOR.
[2019-07-06 12:00] VITALS: BP 134/74
[2019-07-06] MEDS: MORPHINE SULFATE 2 MG/ML SYR IVP PRN (12:57)
--- NOTE | 2019-07-06 13:01 | NUR ---
GAVE DISCHARGE INSTRUCTIONS AT THIS TIME. PATIENT STATED UNDERSTANDING OF INSTRUCTIONS. PATIENT CALLED FOR RIDE WILL COME AT 16OO FOR MECHANICAL DESIGN TECHNICIAN. PATIENT IN STABLE CONDITION.
--- NOTE | 2019-07-06 15:33 | NUR ---
PATIENT WATCHING TV AT THIS TIME. RIDE ETA 1600. BED IN LOW POSITION. BED ALARM ON. CALL LIGHT AT BEDSIDE. WILL CONTINUE TO MONITOR.
[2019-07-06 16:00] VITALS: BP 155/84
--- NOTE | 2019-07-06 18:15 | NUR ---
PATIENT IV REMOVED, LUMEN INTACT. PATIENT REFUSED WHEELCHAIR. PATIENT ESCORTED TO LOBBY USING PERSONAL WALKER. PATIENT FAMILY WAITING WITH VEHICLE. PATIENT IN STABLE CONDITION.
[2019-07-07] MEDS ORDERED: FLONAS NS (14:07)
== END 2019-07-06 18:15 | disposition home or self-care (01) | DRG 206 ==
LOC: MED 15:39 → MTU 18:05
PROVIDERS: ADMIT General Practice; ATTEND General Practice
DX: M94.0 Chondrocostal junction syndrome [Tietze] (principal); C85.90 Non-Hodgkin lymphoma, unspecified, unspecified site; G62.9 Polyneuropathy, unspecified; G89.29 Other chronic pain; M54.9 Dorsalgia, unspecified; I11.0 Hypertensive heart disease with heart failure; I50.9 Heart failure, unspecified; I25.10 Atherosclerotic heart disease of native coronary artery without angina pectoris; M19.90 Unspecified osteoarthritis, unspecified site; M10.9 Gout, unspecified; D64.9 Anemia, unspecified; E02 Subclinical iodine-deficiency hypothyroidism; E78.5 Hyperlipidemia, unspecified; Z88.8 Allergy status to other drugs, medicaments and biological substances; Z91.041 Radiographic dye allergy status; Z88.5 Allergy status to narcotic agent; Z91.013 Allergy to seafood; Z79.899 Other long term (current) drug therapy; Z95.5 Presence of coronary angioplasty implant and graft; Z90.49 Acquired absence of other specified parts of digestive tract; Z90.710 Acquired absence of both cervix and uterus; Z90.5 Acquired absence of kidney; Z87.891 Personal history of nicotine dependence; Z83.3 Family history of diabetes mellitus
CPT/HCPCS: 36415; 36600; 70450; 71045; 80048; 80053; 81003; 82272; 82607; 82728; 82746; 82803; 82948; 83540; 83690; 83735; 83880; 84100; 84443; 84484; 85025; 85045; 85610; 85730; 87081; 96374; 96375; 99285; J0360; J1885; J2270; J7030; Q0092

== ENCOUNTER 2020-02-06 10:42 | Emergency (ER) | payer MEDICARE, OTHER ==
[~2020-02-06] VITALS: Ht 149.9 cm; Wt 92.5 kg
[~2020-02-06 10:42] MED LIST changes: +AMLO-271 PO; -AMLO5TAB5 PO; +FLO44 IH; +IMI25 PO
[2020-02-06 10:43] VITALS: BP 171/90
--- NOTE | 2020-02-06 10:58 | NUR ---
DR. SÁNCHEZ EVALUATING PT AT BEDSIDE
--- NOTE | 2020-02-06 12:00 | NUR ---
69/F presents to ED C/O headache, left facial, left knee, left chest, and left thumb pain S/P fall this morning at 10:30 am. pt states "I was trying to reach for something on the ground when she fell out of her power wheelchair today. Unwitness fall, pt is unsure but states she might have loss consciousness. Reports mild nausea without vomiting earlier. Pt is taking Plavix, Pt Aox4, eyes doc, speeach clear. no signs of neuro defficits. left knee swelling noted, abrasion to left uper eyebrow ; facial bruising, left wrist swelling and brusing . pt steble at this time. Dr. sandoval aware of pt condition. Hx- HTN, nonhodgkin's lymphoma in remission, 8 cardiac stents Allergies: codine, shelfish, contrast media
[2020-02-06] MEDS ORDERED: MORPHINE SULFATE 4 MG/ML SYR IVP ONE (12:10)
[2020-02-06] MEDS ORDERED: ENALAPRIL 10 MG TAB PO ONE (12:10)
[2020-02-06 12:20] LABS: BASOPHILS # (AUTO) 0.1 K/uL (0.00-0.22); BASOPHILS % (AUTO) 1.3 % (0.0-2.0); EOSINOPHILS # (AUTO) 0.4 K/uL (0-0.4); HEMATOCRIT 35.8 % (36-48); HEMOGLOBIN 11.6 g/dL (12.0-16.0); LYMPHOCYTES # (AUTO) 1.1 K/uL (2.5-16.5); MEAN CORPUSCULAR HEMOGLOBIN 25 pg (27-31); MEAN CORPUSCULAR HGB CONC 32 g/dL (33-37); MEAN CORPUSCULAR VOLUME 77.5 fL (80-94); MONOCYTES # (AUTO) 0.6 K/uL (0.8-1.0); MONOCYTES % (AUTO) 8.8 % (1.7-9.3); NEUTROPHILS # (AUTO) 4.1 K/uL (1.8-7.7); NEUTROPHILS % (AUTO) 65.9 % (42.2-75.2); PLATELET COUNT (AUTO) 310 K/uL (140-450); RED BLOOD CELL COUNT(AUTO) 4.62 MIL/uL (4.20-5.40); WHITE BLOOD COUNT (AUTO) 6.3 K/uL (4.8-10.8)
[2020-02-06 12:36] LABS: CARBON DIOXIDE 23.4 mmol/L (21-32); CHLORIDE 106 mmol/L (98-107); CREATININE 1.3 mg/dL (0.6-1.3); GLUCOSE 103 mg/dL (74-106); POTASSIUM 3.4 mmol/L (3.5-5.1); SODIUM SERUM 143 mmol/L (136-145); UREA NITROGEN, BLOOD 15 mg/dL (7-18)
[2020-02-06 12:46] LABS: ALBUMIN 3.9 g/dL (3.4-5.0); ASPARTATE AMINOTRANSFERASE 28 U/L (15-37); TOTAL BILIRUBIN 0.5 mg/dL (0.0-1.0)
--- NOTE | 2020-02-06 12:50 | NUR ---
Patient to be transferred to [facility]. Is being transferred due to HIGH LEVEL OF CARE. Receiving facility has accepting physician and available space. ER physician has signed transfer form. Patient or responsible green party has agreed to transfer and signed form. Patient belongings inventoried and will be sent with patient. Copy of nursing notes, lab reports, EKG, Physicians Orders and X-rays to be sent with patient. Report called to WILLIAM at receiving facility. [facility] ambulance service has been called for transfer. ETA is 1300.
[2020-02-06] MEDS ORDERED: ENALAPRILAT 2.5 MG/2 ML VIAL IVP ONE (12:55)
[2020-02-06] MEDS ORDERED: MORPHINE SULFATE 4 MG/ML SYR ONE (13:21)
[2020-02-06 13:25] VITALS: BP 178/102
== END 2020-02-06 12:50 | disposition short-term general hospital (02) ==
LOC: MED 10:42
DX: S06.5X0A Traumatic subdural hemorrhage without loss of consciousness, initial encounter (principal); I63.9 Cerebral infarction, unspecified; I10 Essential (primary) hypertension; Z85.9 Personal history of malignant neoplasm, unspecified; Z96.651 Presence of right artificial knee joint; Z90.5 Acquired absence of kidney; Z85.22 Personal history of malignant neoplasm of nasal cavities, middle ear, and accessory sinuses; Z88.3 Allergy status to other anti-infective agents; Z88.8 Allergy status to other drugs, medicaments and biological substances; Z88.5 Allergy status to narcotic agent; Z79.899 Other long term (current) drug therapy; Z91.013 Allergy to seafood; Z90.711 Acquired absence of uterus with remaining cervical stump; W07.XXXA Fall from chair, initial encounter; Y93.89 Activity, other specified; Y92.89 Other specified places as the place of occurrence of the external cause; Y99.8 Other external cause status
CPT/HCPCS: 36415; 70450; 70486; 71045; 72125; 73130; 73562; 80053; 84484; 85025; 93005; 96374; 96375; 99285; J2270; J3490

== ENCOUNTER 2020-06-23 15:32 | Emergency (ER) | payer MEDICARE, OTHER ==
[~2020-06-23] VITALS: Ht 149.9 cm; Wt 90.7 kg
[2020-06-23 15:40] VITALS: BP 163/76
--- NOTE | 2020-06-23 15:40 | NUR ---
Patient transported to bed 3 via personal wheelchair.
--- NOTE | 2020-06-23 16:05 | NUR ---
69 y/o F coming in from home with c/c left eye pain and headache x 1 day. Patient states acute onset of eye pain which she describes as shooting, rubber-band like, intermittent 8/10. Patient states headache 7/10 pain. Patient states fever of 100.1 prior to arrival that relieved to to 99.1 after Tylenol 2 hours ago. Patient states watery eyes, blurry vision, dizziness, and weakness. Pt denies N/V/D abdominal pain, urinary symptoms, chest pain. Pt states blood in stool that is normal due to hemorroid surgery two months ago. rattlesnake farmer in place. Bed locked in lowest position, side rails x2, call light in reach. Pt states recent Covid vaccine first dose two weeks ago. PMH: NON HODGKIN'S LYMPHOMA REMISSION, [id number], 8 STENTS, HTN, KIDNEY TRANSPLANT DONOR ALLERGIES: IODINE, AND SHELLFISH Meds: ASA, Plavix Sx: hysterectomy, left nephrectomy
--- NOTE | 2020-06-23 16:10 | NUR ---
Dr. Downing is evaluating patient at bedside.
[2020-06-23] MEDS ORDERED: fentaNYL citrate 0.05 MG/ML VIAL IVP ONE (16:20)
[2020-06-23] MEDS ORDERED: TETRACAINE HCL/PF 0.5% OPTH 4 ML BTL OP ONE (16:20)
--- NOTE | 2020-06-23 16:37 | NUR ---
Lab at bedside
--- NOTE | 2020-06-23 16:40 | NUR ---
Signature obtained from patient for CT Angiogram with IV contrast dye.
--- NOTE | 2020-06-23 16:42 | NUR ---
Contacted CT via telephone to notify patient is ready/consent is signed. collar stitcher made aware of allergies and she advised to notify Dr. Downing.
--- NOTE | 2020-06-23 16:50 | NUR ---
Xray at bedside.
--- NOTE | 2020-06-23 16:51 | NUR ---
Patient states she last received IV contrast dye "3-4 years ago at [facility]; for her heart condition." Patient states no CT with IV contrast performed during her Sunday visit at [facility]. Dr. Downing made aware.
--- NOTE | 2020-06-23 16:55 | NUR ---
Patient states pain now 5/10 to both left eye and headache. Denies nausea at this time. monitor worker remains in place. Bed locked in lowest position, side rails x 1, call light in reach.
[2020-06-23 17:00] LABS: BASOPHILS # (AUTO) 0.1 K/uL (0.00-0.22); EOSINOPHILS # (AUTO) 0.5 K/uL (0-0.4); EOSINOPHILS % (AUTO) 8.8 % (0.0-4.0); HEMATOCRIT 32.5 % (36-48); HEMOGLOBIN 10.5 g/dL (12.0-16.0); LYMPHOCYTES # (AUTO) 1.3 K/uL (2.5-16.5); LYMPHOCYTES % (AUTO) 23.7 % (20.5-51.1); MEAN CORPUSCULAR HEMOGLOBIN 25 pg (27-31); MEAN CORPUSCULAR HGB CONC 32 g/dL (33-37); MEAN CORPUSCULAR VOLUME 77.4 fL (80-94); MONOCYTES # (AUTO) 0.6 K/uL (0.8-1.0); MONOCYTES % (AUTO) 10.5 % (1.7-9.3); NEUTROPHILS # (AUTO) 3.1 K/uL (1.8-7.7); PLATELET COUNT (AUTO) 269 K/uL (140-450); RED CELL DISTRIBUTION WIDTH 18.4 % (11.6-13.7); WHITE BLOOD COUNT (AUTO) 5.6 K/uL (4.8-10.8)
--- NOTE | 2020-06-23 17:01 | NUR ---
Patient ambulated to restroom with assistance; steady/gait.
--- NOTE | 2020-06-23 17:07 | NUR ---
Urine sample collected, walked to lab and handed to john Mendosa tech.
--- NOTE | 2020-06-23 17:10 | NUR ---
Patient resting in position of comfort. Respirations even/unlabored. coat finisher remains in place. Bed locked in lowest position, side rails x1, call light in reach.
[2020-06-23 17:20] LABS: ALBUMIN 3.7 g/dL (3.4-5.0); ANION GAP 12.7 (8-16); ASPARTATE AMINOTRANSFERASE 11 U/L (15-37); CARBON DIOXIDE 23.1 mmol/L (21-32); CHLORIDE 110 mmol/L (98-107); CREATININE 1.3 mg/dL (0.6-1.3); GLUCOSE 90 mg/dL (74-106); POTASSIUM 3.8 mmol/L (3.5-5.1); SODIUM SERUM 142 mmol/L (136-145); TOTAL BILIRUBIN 0.3 mg/dL (0.0-1.0); UREA NITROGEN, BLOOD 16 mg/dL (7-18)
[2020-06-23 17:21] LABS: APPEARANCE,URINE CLEAR (CLEAR); BILIRUBIN,URINE NEGATIVE (NEGATIVE); BLOOD, URINE NEGATIVE (NEGATIVE); COLOR,URINE YELLOW (YELLOW); LEUKOCYTE ESTERASE ,URINE 1+ (NEGATIVE); NITRITE, URINE NEGATIVE (NEGATIVE); UGLUCOSE NEGATIVE (NEGATIVE)
[2020-06-23 17:42] LABS: RBC,URINE 0-5 /HPF (0-5)
--- NOTE | 2020-06-23 18:22 | NUR ---
Dr. Downing made aware of patient blood pressure 185/95.
--- NOTE | 2020-06-23 18:30 | NUR ---
Patient resting in position of comfort. awake overnight monitor remains in place. Bed locked in lowest position, side rails x1, call light in reach. Respirations even/unlabored.
[2020-06-23] MEDS ORDERED: MORPHINE SULFATE 4 MG/ML SYR IVP ONE (18:40)
[2020-06-23] MEDS ORDERED: TOMOMETER 1 DEV DEV MC ONE (18:40)
--- NOTE | 2020-06-23 18:45 | NUR ---
Dr. Downing is evaluating patient at bedside with Tonometer.
--- NOTE | 2020-06-23 19:14 | NUR ---
Patient states positive pain relief after Morphine 4mg IVP. Patient rates pain 4/10 at this time. Respirations even/unlabored. No distress noted.
--- NOTE | 2020-06-23 19:15 | NUR ---
Report and transfer of care given to PRISCILA Tobias.
[2020-06-23] MEDS ORDERED: ACET-9527 PO (19:36)
[2020-06-23 20:13] VITALS: BP 185/95
--- NOTE | 2020-06-23 20:13 | NUR ---
Patient discharged with v/s stable. Written and verbal after care instructions given and explained. Patient verbalized understanding. Wheel Chair Assisted with to home. All questions addressed prior to discharge. Advised to follow up with PMD. RX NORCO SENT TO PREFERRED PHARMACY, ARM BAND REMOVED
--- NOTE | 2020-06-23 20:45 | NUR ---
RESTIING IN BED WITH EYES OPEN, RESPIRATIONS REGULAR AND UNLABORED. PT STATES SHE IS FEELING BETTER. Addendum: 06/23/20 at 2224 by JOSUE TIME IS 1944
== END 2020-06-23 20:13 | disposition home or self-care (01) ==
LOC: MED 15:32
DX: R51.9 Headache, unspecified (principal); M54.2 Cervicalgia; R53.1 Weakness; H53.8 Other visual disturbances; I11.0 Hypertensive heart disease with heart failure; I50.9 Heart failure, unspecified; Z88.8 Allergy status to other drugs, medicaments and biological substances; Z91.013 Allergy to seafood; Z79.899 Other long term (current) drug therapy; Z86.73 Personal history of transient ischemic attack (TIA), and cerebral infarction without residual deficits; Z85.72 Personal history of non-Hodgkin lymphomas; Z98.890 Other specified postprocedural states
CPT/HCPCS: 36415; 70450; 71045; 80053; 81001; 85025; 85651; 87086; 93005; 96374; 96375; 99285; J2270; J3010

== ENCOUNTER 2020-06-26 17:25 | Emergency (ER) | payer MEDICARE, OTHER ==
[~2020-06-26] VITALS: Ht 149.9 cm; Wt 99.8 kg
[~2020-06-26 17:25] MED LIST changes: +ACET-9527 PO
[2020-06-26 17:37] VITALS: BP 176/98
--- NOTE | 2020-06-26 17:39 | NUR ---
to ED bed 06 with motorized w/c
[2020-06-26] MEDS ORDERED: cefTRIAXone 1,000 MG in LIDOCAINE MPF 1% 2.1 ML IM ONE (17:55)
[2020-06-26] MEDS ORDERED: ONDANSETRON 4 MG ODT PO ONE (17:55)
[2020-06-26] MEDS ORDERED: MORPHINE SULFATE 4 MG/ML SYR IM ONE (17:55)
--- NOTE | 2020-06-26 18:00 | NUR ---
69 Y/O F BIB SELF FROM HOME, PATIENT PRESENTS TO ED WITH HEADACHE AND CHEST PAIN RADIATES TO NECK, SQUEEZING SENSATION 8/10 THAT STARTED 06/24/20. PT STATES SHE TOOK TYLENOL FOR PAIN, NO RELIEF, SOB, DENIES COUGH AND FEVERS. DENIES N/V/D; SKIN IS PINK/WARM/DRY; AAOX4 DOES NOT AMBULATE, WHEELCHAIR ASSIST; LUNGS CLEAR BL; PATIENT STATES PAIN OF 8/10 AT THIS TIME; VSS; PATIENT POSITIONED FOR COMFORT; HOB ELEVATED; BEDRAILS UP X2; BED DOWN. ER MD MADE AWARE OF PT STATUS. PMH: 1 KIDNEY (DONOR), HTN MED: LAST DOSE TYLENOL 1000MG 1200 06/26/20 ALLERGY: IODINE (HIVES)
[2020-06-26] MEDS ORDERED: cefTRIAXone 1,000 MG VIAL ONE (18:01)
[2020-06-26] MEDS ORDERED: LIDOCAINE MPF 1% 5 ML ONE (18:02)
[2020-06-26] MEDS ORDERED: CEPH500C16 PO (18:40)
[2020-06-26 18:56] VITALS: BP 176/98
--- NOTE | 2020-06-26 18:57 | NUR ---
Patient discharged with v/s stable. Written and verbal after care instructions given and explained. Patient alert, oriented and verbalized understanding of instructions. Wheel Chair Assisted with to home. All questions addressed prior to discharge. ID band removed. Patient advised to follow up with PMD. Rx of CEPHALEXIN given. Patient educated on indication of medication including possible reaction and side effects. Opportunity to ask questions provided and answered.
== END 2020-06-26 18:57 | disposition home or self-care (01) ==
LOC: MED 17:25
DX: N39.0 Urinary tract infection, site not specified (principal); I11.9 Hypertensive heart disease without heart failure; Z86.73 Personal history of transient ischemic attack (TIA), and cerebral infarction without residual deficits; Z91.013 Allergy to seafood; Z88.8 Allergy status to other drugs, medicaments and biological substances; Z85.9 Personal history of malignant neoplasm, unspecified
CPT/HCPCS: 93005; 96372; 99284; J0696; J2001; J2270; Q0162

== ENCOUNTER 2022-01-04 11:57 | Inpatient (IN) | payer MEDICARE, OTHER ==
[~2022-01-04] VITALS: Ht 149.9 cm; Wt 127.0 kg
[~2022-01-04 11:57] MED LIST changes: +CEPH500C16 PO
[2022-01-04 11:58] VITALS: BP 101/55
--- NOTE | 2022-01-04 12:00 | NUR ---
PT OFF-LOADED TO BED 10.
--- NOTE | 2022-01-04 12:21 | NUR ---
PAMELA BUNDY AT BEDSIDE EXAMINING PT.
[2022-01-04] MEDS ORDERED: ONDANSETRON 4 MG/2 ML VIAL IVP ONE (12:40)
[2022-01-04] MEDS ORDERED: NACL 0.9% 1,000 ML IV ONE (12:40)
--- NOTE | 2022-01-04 12:58 | NUR ---
IV ESTABLISHED ON LEFT AC WITH 20G.
[2022-01-04 13:19] LABS: BASOPHILS # (AUTO) 0.1 K/uL (0.00-0.22); BASOPHILS % (AUTO) 1.1 % (0.0-2.0); EOSINOPHILS # (AUTO) 0.3 K/uL (0-0.4); EOSINOPHILS % (AUTO) 3.5 % (0.0-4.0); HEMATOCRIT 33.7 % (36-48); HEMOGLOBIN 10.9 g/dL (12.0-16.0); LYMPHOCYTES # (AUTO) 1.2 K/uL (2.5-16.5); LYMPHOCYTES % (AUTO) 14.9 % (20.5-51.1); MEAN CORPUSCULAR HEMOGLOBIN 24 pg (27-31); MEAN CORPUSCULAR HGB CONC 33 g/dL (33-37); MEAN CORPUSCULAR VOLUME 75.2 fL (80-94); MONOCYTES # (AUTO) 0.3 K/uL (0.8-1.0); MONOCYTES % (AUTO) 4.3 % (1.7-9.3); NEUTROPHILS # (AUTO) 6.1 K/uL (1.8-7.7); NEUTROPHILS % (AUTO) 76.2 % (42.2-75.2); PLATELET COUNT (AUTO) 314 K/uL (140-450); RED BLOOD CELL COUNT(AUTO) 4.48 MIL/uL (4.20-5.40)
[2022-01-04 13:23] LABS: ALBUMIN 3.6 g/dL (3.4-5.0); ANION GAP 15.7 (8-16); ASPARTATE AMINOTRANSFERASE 13 U/L (15-37); CARBON DIOXIDE 23.7 mmol/L (21-32); CHLORIDE 106 mmol/L (98-107); CREATININE 1.8 mg/dL (0.6-1.3); GLUCOSE 106 mg/dL (74-106); POTASSIUM 3.4 mmol/L (3.5-5.1); SODIUM SERUM 142 mmol/L (136-145); TOTAL BILIRUBIN 0.5 mg/dL (0.0-1.0); UREA NITROGEN, BLOOD 23 mg/dL (7-18)
--- NOTE | 2022-01-04 13:37 | NUR ---
PT BIBA TO ED WITH C/O GENERALIZED WEAKNESS X1WEEK. PT REPORTS FATIGUE STATING SHE STARTED A NEW BLOOD PRESSURE MEDICATION TWO WEEKS AGO AND BELIEVES MAY BE RELATED TO SYMPTOMS. PT COMPLAINING OF NAUSEA AND DIARRHEA SINCE YESTERDAY. EMS STATES ON SCENE PT'S HR MARIAJOSE AT 48, UPON ARRIVAL PT'S HR IN THE LOW 50'S. DENIES CP, REPORTS SOME SOB, OXYGEN ON ARRIVAL 93% ON ROOM AIR. PT PLACED IN GOWN AND ON CABLE ENGINEER OUTSIDE PLANT. DR. BUNDY AWARE OF PT STATUS UPON ARRIVAL.
[2022-01-04] MEDS ORDERED: ASPIRIN 81 MG TAB.CHEW PO ONE (13:55)
[2022-01-04] MEDS ORDERED: FUROSEMIDE 40 MG/4 ML VIAL IVP SCH (13:55)
[2022-01-04] MEDS ORDERED: AMLO10TA PO (14:11)
[2022-01-04] MEDS ORDERED: CARV6.252 PO (14:11)
[2022-01-04] MEDS ORDERED: DONE10TA10 PO (14:11)
[2022-01-04] MEDS ORDERED: GABA300C PO (14:11)
[2022-01-04] MEDS ORDERED: KETOROLAC 30 MG/ML VIAL IVP ONE (14:55)
--- NOTE | 2022-01-04 17:11 | NUR ---
Patient will be admitted to care of DR. TAMAYO. Admited to TELE. Will go to room 120B. Belongings list completed. Report to MITZI FRANCOIS.
--- NOTE | 2022-01-04 17:31 | NUR ---
RECEIVE ER NURSE BEDSIDE REPORT THAT PATIENT COME FORM [facility] W/ ADMISSION COVID RAPID TEST RESULT NEGATIVE. PATIENT ADMIT FOR CHF AXEL, DEHYDRATION. PATIENT CAN SPEAK BOTH [place] & [place]ONG[place], ALERT X 4, SR TO BRADYCARDIA, ON ROOM AIR, CARDIAC DIET, FULL CODE, PIV LAC 20G, SALINE LOCK. PER PATIENT , SHE START NEW BP MEDICATION WHICH PATIENT BELIEVE THAT CONTRIBUTE THIS TIME HOSPITAL ADMISSION. WILL CONTINUE TO MONITOR
[2022-01-04] MEDS ORDERED: ACETAMINOPHEN 325 MG TAB PO PRN (18:55)
[2022-01-04] MEDS ORDERED: POTASSIUM CHLORIDE 10 MEQ TABER PO PRN (18:55)
[2022-01-04] MEDS ORDERED: guaiFENesin DM 200/20 MG-10 ML 10 ML UDC PO PRN (18:55)
[2022-01-04] MEDS ORDERED: DOCUSATE SODIUM 100 MG GELCAP PO PRN (18:55)
[2022-01-04] MEDS ORDERED: NACL 0.9% 1,000 ML IV SCH (18:55)
[2022-01-04] MEDS ORDERED: ZOLPIDEM 5 MG TAB PO PRN (18:55)
[2022-01-04 19:27] LABS: CHOL/HDL RATIO 3.4 (1-4.5); FREE T4 (FREE THYROXINE) 0.97 ng/dL (0.76-1.46); MAGNESIUM 1.9 mg/dL (1.8-2.4); PHOSPHORUS 3.4 mg/dL (2.5-4.9); THYROID STIMULATING HORMONE 4.25 uIU/mL (0.34-3.74)
--- NOTE | 2022-01-04 19:35 | NUR ---
RECEIVED PATIENT IN BED, AWAKE, ALERT AND ORIENTED X 4. DENIES PAIN. DENIES SHORTNESS OF BREATH. SKIN WARM AND DRY TO TOUCH. IVF INFUSING WELL ORDERED. BED IN THE LOWEST AND LOCKED POSITION FOR SAFETY, CALL LIGHT WITHIN REACH, INSTRUCTED TO CALL IF ASSISTANCE IS NEEDED, PT VERBALLY AGREED.
[2022-01-04 20:00] VITALS: BP 122/55
[2022-01-04] MEDS: carvediloL 6.25 MG TAB PO SCH (20:25)
--- NOTE | 2022-01-04 21:45 | NUR ---
ASSISTED PATIENT TO THE BATHROOM AND BACK IN BED, ABLE TO VOID WITHOUT DIFFICULTY, COLLECTED URINE AND SENT TO THE LAB ORDERED. CALL LIGHT WITHIN REACH.
[2022-01-04 22:26] LABS: APPEARANCE,URINE SL CLOUDY (CLEAR); BILIRUBIN,URINE NEGATIVE (NEGATIVE); BLOOD, URINE NEGATIVE (NEGATIVE); COLOR,URINE YELLOW (YELLOW); LEUKOCYTE ESTERASE ,URINE NEGATIVE (NEGATIVE); NITRITE, URINE NEGATIVE (NEGATIVE); UGLUCOSE NEGATIVE (NEGATIVE)
[2022-01-04 23:02] LABS: BARBITURATE, URINE NEGATIVE ng/ml (NEG <=200); BENZODIAZEPINE, URINE NEGATIVE ng/mL (NEG <=200); CANNABINOID, URINE NEGATIVE ng/mL (NEG <=50); COCAINE, URINE NEGATIVE ng/mL (NEG <=300); OPIATE, URINE NEGATIVE ng/mL (NEG <=2000); PHENCYCLIDINE SCREEN,URINE NEGATIVE ng/mL (NEG <=25)
[2022-01-04] MEDS: HYDROcodone/APAP 7.5/325 MG 1 TAB PO PRN (23:31)
--- NOTE | 2022-01-04 23:31 | NUR ---
COMPLAINING OF 5/10 HEADACHE, MEDICATED ORDERED.
[2022-01-05] VITALS: BP 133/65
--- NOTE | 2022-01-05 00:31 | NUR ---
REASSESSED FOR PAIN. PATIENT DENIES PAIN AT THIS TIME. ENCOURAGED TO CALL IF ASSISTANCE IS NEEDED. CALL LIGHT WITHIN REACH.
--- NOTE | 2022-01-05 02:51 | NUR ---
PATIENT IS ASLEEP, NO SIGNS OF DISTRESS NOTED, CALL LIGHT WITHIN REACH.
[2022-01-05 04:00] VITALS: BP 136/66
[2022-01-05] MEDS: HYDROcodone/APAP 7.5/325 MG 1 TAB PO PRN ×2 (06:25→15:51)
--- NOTE | 2022-01-05 06:25 | NUR ---
PATIENT C/O 09/25 PAIN ON MID ABDOMEN, MEDICATED PATIENT ORDERED. ALL NEEDS ATTENDED TO AND NO ACUTE RESPIRATORY DISTRESS, SAFETY PRECAUTIONS MAINTIANED DURING THE SHIFT, CALL REMAIN WITHIN REACH.
[2022-01-05 06:58] LABS: BASOPHILS # (AUTO) 0.1 K/uL (0.00-0.22); BASOPHILS % (AUTO) 1.3 % (0.0-2.0); EOSINOPHILS # (AUTO) 0.4 K/uL (0-0.4); EOSINOPHILS % (AUTO) 6.3 % (0.0-4.0); HEMATOCRIT 29.4 % (36-48); HEMOGLOBIN 9.5 g/dL (12.0-16.0); LYMPHOCYTES # (AUTO) 2.1 K/uL (2.5-16.5); LYMPHOCYTES % (AUTO) 29.4 % (20.5-51.1); MEAN CORPUSCULAR HEMOGLOBIN 24 pg (27-31); MEAN CORPUSCULAR HGB CONC 33 g/dL (33-37); MEAN CORPUSCULAR VOLUME 74.8 fL (80-94); MONOCYTES # (AUTO) 0.7 K/uL (0.8-1.0); NEUTROPHILS # (AUTO) 3.7 K/uL (1.8-7.7); PLATELET COUNT (AUTO) 329 K/uL (140-450); RED BLOOD CELL COUNT(AUTO) 3.93 MIL/uL (4.20-5.40); RED CELL DISTRIBUTION WIDTH 17.7 % (11.6-13.7)
--- NOTE | 2022-01-05 07:13 | NUR ---
REPORT GIVEN TO AM RN FOR CONTINUITY OF CARE. PATIENT IS ASLEEP. NO DISTRESS.
--- NOTE | 2022-01-05 07:30 | NUR ---
Received pt awake, alert and oriented x4. No respiratory distress noted and on room air. On tele monitoring. Abd soft and nondistended. Continent bowel and bladder. Peripheral IV on left AC 20 gauge intact and patent infusing NS@45ml/hr. Safety precautions in place. Call light within reach.
[2022-01-05 07:35] LABS: ANION GAP 13.4 (8-16); CARBON DIOXIDE 22.3 mmol/L (21-32); CHLORIDE 110 mmol/L (98-107); CREATININE 1.9 mg/dL (0.6-1.3); GLUCOSE 88 mg/dL (74-106); POTASSIUM 3.7 mmol/L (3.5-5.1); SODIUM SERUM 142 mmol/L (136-145); UREA NITROGEN, BLOOD 26 mg/dL (7-18)
[2022-01-05 08:00] VITALS: BP 139/65
[2022-01-05] MEDS: GABAPENTIN 300 MG CAP PO SCH (08:47)
[2022-01-05] MEDS: CLOPIDOGREL 75 MG TAB PO SCH (08:47)
[2022-01-05] MEDS: FUROSEMIDE 20 MG TAB PO SCH (08:48)
[2022-01-05] MEDS: PANTOPRAZOLE 40 MG TABEC PO SCH (08:48)
[2022-01-05] MEDS: carvediloL 6.25 MG TAB PO SCH (08:48)
[2022-01-05] MEDS: amLODIPine 5 MG TAB PO SCH (08:48)
--- NOTE | 2022-01-05 11:01 | NUR ---
DC PLANNIN YRS OLD FEMALE PATIENT WAS ADMITTED FROM HOME WITH A DX OF CHF, AXEL, AND DEHYDRATION. PATIENT HAS A HX OF NON HODGKIN LYMPHOMA IN REMISSION, HTN, HLD,CAD AND S/P LEFT NEPHRECTOMY. CXR SHOWED FLUID OVERLOAD WITH CENTRAL PULMONARY VASCULAR CONGESTION. RENAL US SHOWED ECHOGENIC RIGHT KIDNEY SUGGESTING AXEL AND RIGHT RENAL CYST. RAPID COVID TEST NEGATIVE. B/C 26/.9 .ADMINISTERED IVF AND CONTINUED HOME MEDS. CONSULTED WITH NEPHRO AND CARDIO. DC PLAN TO GO HOME WHEN STABLE. CM TO FOLLOW Addendum: 01/06/22 at 1111 by Dahlia Yates RN DC PLANNING: RECEIVED A CALL FROM [facility] CM SPOKE WITH ROSAURA GOODMAN PT'S CLINICAL. PATIENT STILL COMPLAIN OF PAIN ADMINISTERED NORCO FOR PAIN, HAS DIARRHEA ORDERED STOOL FOR C-DIFF STOOL WBC. PER PRIMARY NURSE PATIENT HAS NO BM AT THIS TIME. DC PLAN AWAITING FOR ECHO RESULT. CM TO FOLLOW.
--- NOTE | 2022-01-05 11:07 | NUR ---
Echocardiogram done at bedside.
[2022-01-05 12:00] VITALS: BP 126/59
--- NOTE | 2022-01-05 12:30 | NUR ---
Seen and examined by Dr. Moura. New order to discontinue IV fluids and strict I&O.
--- NOTE | 2022-01-05 13:00 | NUR ---
PATIENT HAS BEEN SCREENED AND CATEGORIZED MODERATE NUTRITION RISK. PATIENT WILL BE SEEN WITHIN 3-5 DAYS OF ADMISSION. 01/07/2210/24/[address]
--- NOTE | 2022-01-05 13:24 | NUR ---
warm in worker at bedside speaking with pt.
--- NOTE | 2022-01-05 13:30 | NUR ---
DISCHARGE PLANNING PATIENT IS A 71-YEAR-OLD FEMALE ADMITTED 0N 01/04/2022 AT THE [facility]/ED DUE TO COMPLAINTS OF GENARALIZED WEEKNESS. PATIENT HAS MEDICAL HISTORY OF PMHx HTN,HLD,CAD S/P STENTS, S/P NEPHRECTOMY FOR KIDNEY DONATION. NHL IN REMISSION. SW MET WITH PATIENT AT BEDSIDE TO DISCUSS AND GATHER PATIENT'S COLLATERAL INFORMATION. PATIENT WAS ALERT AND AWAKE DURING MEETING WITH SW. PATIENT REPORTED LIVING AT HOME ALONE IN HER APARTMENT IN [facility]. PER PATIENT SHE HAS GOOD FAMILY SUPPORT FROM HER FAMILY. PATIENT REPORTED BEEN ACTIVE AND INDEPENDENT AT HOME EVEN WITH HER DME. PATIENT ALSO REPORTED NOT HAVING ADVANCE DIRECTIVES AND WAS NOT INTERESTED ON GETTING INFORMATION FORMS PROVIDED BY SW AT THE TIME OF MEETING. PER PATIENT HER DAUGHTER GORDON BARBER AND GRANDAUBRYON BARBER ARE HER EMERGENCY CONTACT AND MEDICAL DESICION MAKERS. PATIENT REPORTED NOT HAVING ANY ISSUES WITH HER MEDICATIONS AND REPORTED BEEN COMPLIANT WITH HER MEDICATIONS. PER PATIENT SHE GETS HER MEDICATIONS FROM THE [facility] IN [facility] AND [address] [place] [address] IN [facility]. PATIENT REPORTED NOT HAVING OR NEEDING DME AT THIS TIME, SHE HAS A SCOOTER (WITH [employer], AN A WALKER. PATIENT REPORTED HAVING A GOOD RELATIONSHIP WITH HER HEALTH PROVIDER DOCTOR DELMIS FRIAS AND LAST APPOINTMENT WITH HER PCP WAS ABOUT A MONTH AGO. SW EXPLAINED TO PATIENT THE NEED TO FOLLOW UP WITH AN APPOINTMENT WITHIN 5-7 DAYS AFTER HER DC WITH HER PCP. PATIENT AGREED AND STATED THAT SHE WILL MAKE HER OWN APPOINTMENT BECAUSE SHE DO NOT WANT TO CANCEL IF IT DOESN'T WORK OUT WITH HER SCHEDULED. PATIENT DECLINED FOR SW TO MAKE HER FOLLOW UP APPOINTMENT WITH PRIMARY DOCTOR AFTER SHE DISCHARGES FROM [facility]. PATIENT STATED THAT HER FRIEND MARCIO FROM HER [employer] THAT ALSO IS HIS NEIGHBOR OR HER DAUGHTER WILL BE ASSISTING HER WITH TRANSPORTATION BACK HOME WHEN SHE IS READY AND STABLE TO DISCHARGE. SW WILL FOLLOW UP WITH PATIENT NEEDED.
[2022-01-05 16:00] VITALS: BP 129/57
--- NOTE | 2022-01-05 16:30 | NUR ---
ULTRASOUND OF KIDNEYS DONE AT BEDSIDE.
[2022-01-05] MEDS: ATORVASTATIN 20 MG TAB PO SCH (16:32)
--- NOTE | 2022-01-05 19:11 | NUR ---
Endorsed to police shift commander nurse Flory for continuity of care.
--- NOTE | 2022-01-05 19:15 | NUR ---
RECEIVED PATIENT IN BED, AWAKE, ALERT AND ORIENTED. DENIES PAIN. NO CUTE RESPIRATORY DISTRESS. SKIN WARM AND DRY TO TOUCH. BED IN THE LOWEST AND LOCKED POSITION FOR SAFETY, CALL LIGHT IN REACH.
[2022-01-05 20:00] VITALS: BP 145/66
[2022-01-05] MEDS: DONEPEZIL 10 MG TAB PO SCH (20:16)
--- NOTE | 2022-01-05 21:20 | NUR ---
PATIENT COMPLAINING OF 8/10 HEADACHE, NORCO 7.5 MG PO GIVEN ORDERED.
--- NOTE | 2022-01-05 22:20 | NUR ---
RE-ASSESSED FOR PAIN, PATIENT IS ASLEEP. NO S/SX OF PAIN NOR DISCOMFORT. CALL LIGHT IN REACH.
[2022-01-06] VITALS: BP 166/72
--- NOTE | 2022-01-06 00:25 | NUR ---
BP-166/72 HR-68, INFORMED DR. BLANCHARD, NEW ORDER GIVEN AND WILL BE CARRIED OUT.
[2022-01-06] MEDS: hydrALAZINE 20 MG/ML VIAL IVP PRN ×2 (00:35→17:41)
--- NOTE | 2022-01-06 01:35 | NUR ---
CURRENT BP -162/70 HR-60. WILL CONTINUE TO MONITOR.
[2022-01-06 04:00] VITALS: BP 158/65
--- NOTE | 2022-01-06 04:00 | NUR ---
PATIENT IS ASLEEP. NO S/SX OF PAIN NOR DISCOMFORT. CALL LIGHT IN REACH.
[2022-01-06 05:54] LABS: BASOPHILS # (AUTO) 0.1 K/uL (0.00-0.22); BASOPHILS % (AUTO) 1.1 % (0.0-2.0); EOSINOPHILS # (AUTO) 0.5 K/uL (0-0.4); EOSINOPHILS % (AUTO) 7.7 % (0.0-4.0); HEMATOCRIT 31.4 % (36-48); HEMOGLOBIN 10.1 g/dL (12.0-16.0); LYMPHOCYTES % (AUTO) 28.5 % (20.5-51.1); MEAN CORPUSCULAR HEMOGLOBIN 24 pg (27-31); MEAN CORPUSCULAR HGB CONC 32 g/dL (33-37); MEAN CORPUSCULAR VOLUME 75.8 fL (80-94); MONOCYTES # (AUTO) 0.6 K/uL (0.8-1.0); MONOCYTES % (AUTO) 8.6 % (1.7-9.3); NEUTROPHILS # (AUTO) 3.7 K/uL (1.8-7.7); NEUTROPHILS % (AUTO) 54.1 % (42.2-75.2); PLATELET COUNT (AUTO) 334 K/uL (140-450); RED BLOOD CELL COUNT(AUTO) 4.14 MIL/uL (4.20-5.40); RED CELL DISTRIBUTION WIDTH 17.7 % (11.6-13.7); WHITE BLOOD COUNT (AUTO) 6.9 K/uL (4.8-10.8)
[2022-01-06 06:28] LABS: ANION GAP 14.2 (8-16); CARBON DIOXIDE 22.4 mmol/L (21-32); CHLORIDE 108 mmol/L (98-107); CREATININE 1.7 mg/dL (0.6-1.3); GLUCOSE 81 mg/dL (74-106); POTASSIUM 3.6 mmol/L (3.5-5.1); SODIUM SERUM 141 mmol/L (136-145); UREA NITROGEN, BLOOD 24 mg/dL (7-18)
--- NOTE | 2022-01-06 06:29 | NUR ---
PATIENT IS ASLEEP, NO DISTRESS NOTED. SAFETY PRECAUTIONS IN PLACE, CALL LIGHT WITHIN REACH
--- NOTE | 2022-01-06 07:30 | NUR ---
RECEIVED REPORT FROM NIGHTSHIFT NURSE. PT A/O X3. ABLE TO MAKE NEEDS KNOWN. PT STATES ABDOMINAL PAIN. SEE PAIN ASSESSMENT/REASSESSMENT FOR PAIN MANAGEMENT. NO SOB OR RESPIRATORY DISTRESS. ON RA. STRICT I & O. HAT PLACED IN TOILET TO MONITOR URINE OUTPUT. ALL NEEDS MET AT THIS TIME. ALL SAFETY MEASURES IN PLACE.
[2022-01-06 08:00] VITALS: BP 158/77
[2022-01-06] MEDS: GABAPENTIN 300 MG CAP PO SCH (08:25)
[2022-01-06] MEDS: CLOPIDOGREL 75 MG TAB PO SCH (08:26)
[2022-01-06] MEDS: PANTOPRAZOLE 40 MG TABEC PO SCH (08:26)
[2022-01-06] MEDS: FUROSEMIDE 20 MG TAB PO SCH (08:26)
[2022-01-06] MEDS: HYDROcodone/APAP 7.5/325 MG 1 TAB PO PRN ×3 (08:27→21:04)
[2022-01-06] MEDS: amLODIPine 5 MG TAB PO SCH (08:27)
--- NOTE | 2022-01-06 10:30 | NUR ---
EXPLAINED TO PT OF STOOL COLLECTION. HAT PLACED IN TOILET FOR STOOL COLLECTION. PT VERBALIZED UNDERSTANDING. IN NO ACUTE DISTRESS. ALL NEEDS MET. ALL SAFETY MEASURES IN PLACE.
[2022-01-06 12:00] VITALS: BP 151/68
--- NOTE | 2022-01-06 13:00 | NUR ---
CONTACTED DIETARY FOR NEW LUNCH TRAY. PT STATES SHE DOES NOT LIKE FISH.
[2022-01-06] MEDS: LACTULOSE 20 GM/30 ML UDC PO SCH ×2 (13:51→16:32)
--- NOTE | 2022-01-06 13:51 | NUR ---
SCHEDULED LACTULOSE GIVEN. STOOL SAMPLE STILL NEEDED. HAT IN TOILET. PT WITH NEW LUNCH TRAY WITH 100% INTAKE. OBSERVE WITH GOOD APPETITE. NO PAIN AT THIS TIME. ALL NEEDS MET. ALL SAFETY MEASURES IN PLACE.
[2022-01-06 15:06] LABS: T4 (THYROXINE) 6.4 ug/dL (4.5-12.0)
[2022-01-06 16:00] VITALS: BP 160/82
--- NOTE | 2022-01-06 16:00 | NUR ---
CDIFF STOOL SAMPLE SENT TO LAB
--- NOTE | 2022-01-06 16:13 | NUR ---
P.T. NOTES P.T. EVAL COMPLETED; REFER TO EVAL FOR DETAILS.
[2022-01-06] MEDS: ATORVASTATIN 20 MG TAB PO SCH (16:25)
--- NOTE | 2022-01-06 19:14 | NUR ---
REPORT GIVEN TO NIGHTSHIFT NURSE FOR CONTINUITY OF CARE.
[2022-01-06 20:00] VITALS: BP 167/66
--- NOTE | 2022-01-06 20:00 | NUR ---
RECEIVED BEDSIDE REPORT FROM DAY NURSE FOR CONTINUITY OF CARE. PATIENT A/A/OX4, WALKING IN THE ROOM AND NOT ON ANY DISTRESS. PT DENIES AND WEAKNESS, CHEST PAIN, PALPITATIONS AND DIZZINESS. PATIENT HAS NO COMPLAIN AT THIS TIME. IV ON THE LEFT AC NOT PATENT, LEAKING. WILL REPLACE IV. VSS, AFEBRILE, SATING 95% ON RA. SR ON TELE MONITOR, HR-70. CALL LIGHT WITHIN REACH. WILL CONTINUE POC AND MONITORING.
[2022-01-06] MEDS: DONEPEZIL 10 MG TAB PO SCH (20:56)
--- NOTE | 2022-01-06 22:00 | NUR ---
ALL SCHEDULED MEDS GIVEN ORDERED. NO ADVERSE DRUG REACTION NOTED. WILL CONTINUE TO OBSERVE THE PATIENT.
[2022-01-06] MEDS ORDERED: MORPHINE SULFATE 2 MG/ML SYR IVP SCH (23:00)
--- NOTE | 2022-01-06 23:05 | NUR ---
PATIENT COMPLAINING OF CHEST PAIN 10/26 STATED " IT FEELS LIKE TWISTING FEELING IN MY HEART". BP-164/88, HR-82, SATING 100% ON RA. MESSAGED DR CARRINGTON AND MADE AWARE OF THE PATIENT COMPLAIN. MD AWARE AND REPLIED BACK AND ORDERED STAT EKG AND TO GIVE MORPHINE 2 MG X1 IV. PT HAS CODEINE ALLERGY. VERIFIED THE PATIENT ALLERGY AND MADE AWARE THAT THE DR ORDERED TO GIVE MORPHINE. PER PATIENT SHE ALWAYS GET MORPHINE FROM [facility] AND STATED THAT SHE NEVER HAD A REACTION AND PROBLEM.
[2022-01-06] MEDS ORDERED: MORPHINE SULFATE 2 MG/ML SYR ONE (23:15)
--- NOTE | 2022-01-06 23:15 | NUR ---
RE ASSESS PATIENT CHEST PAIN AFTER GIVING THE MORPHINE. PATIENT VERBALIZED RELIEF AND DENIES CHEST PAIN, SOB AT THIS TIME. STAT EKG SHOWED NORMAL EKG, SR ,HR-70. WILL CONTINUE TO MONITOR
[2022-01-07] VITALS: BP 132/67
--- NOTE | 2022-01-07 | NUR ---
VITAL SIGNS STABLE, AFEBRILE SATING 95% ON RA. DENIES PAIN AT THIS TIME. WILL CONTINUE TO OBSERVE.
--- NOTE | 2022-01-07 02:00 | NUR ---
PT ASLEEP AT THIS TIME. VISIBLE CHEST RISE AND FALL NOTED. PT NOT ON ANY DISTRESS. WILL CONTINUE OBSERVATION.
[2022-01-07 04:00] VITALS: BP 144/71
--- NOTE | 2022-01-07 04:00 | NUR ---
PATIENT WENT TO THE BATHROOM. NOT ON ANY DISTRESS AND NO COMPLAIN AT THIS TIME. WILL CONTINUE TO MONITOR.
[2022-01-07] MEDS: HYDROcodone/APAP 7.5/325 MG 1 TAB PO PRN ×4 (04:58→22:18)
[2022-01-07 05:20] LABS: BASOPHILS # (AUTO) 0.1 K/uL (0.00-0.22); BASOPHILS % (AUTO) 1.4 % (0.0-2.0); EOSINOPHILS # (AUTO) 0.5 K/uL (0-0.4); HEMATOCRIT 32.3 % (36-48); HEMOGLOBIN 10.5 g/dL (12.0-16.0); LYMPHOCYTES # (AUTO) 1.9 K/uL (2.5-16.5); MEAN CORPUSCULAR HEMOGLOBIN 25 pg (27-31); MEAN CORPUSCULAR HGB CONC 32 g/dL (33-37); MEAN CORPUSCULAR VOLUME 75.6 fL (80-94); MONOCYTES # (AUTO) 0.7 K/uL (0.8-1.0); MONOCYTES % (AUTO) 10.2 % (1.7-9.3); NEUTROPHILS # (AUTO) 3.5 K/uL (1.8-7.7); NEUTROPHILS % (AUTO) 52.4 % (42.2-75.2); PLATELET COUNT (AUTO) 333 K/uL (140-450); RED BLOOD CELL COUNT(AUTO) 4.28 MIL/uL (4.20-5.40); RED CELL DISTRIBUTION WIDTH 18.4 % (11.6-13.7); WHITE BLOOD COUNT (AUTO) 6.6 K/uL (4.8-10.8)
[2022-01-07 05:38] LABS: CARBON DIOXIDE 22.6 mmol/L (21-32); CHLORIDE 108 mmol/L (98-107); CREATININE 1.5 mg/dL (0.6-1.3); GLUCOSE 90 mg/dL (74-106); POTASSIUM 3.6 mmol/L (3.5-5.1); SODIUM SERUM 140 mmol/L (136-145); UREA NITROGEN, BLOOD 20 mg/dL (7-18)
--- NOTE | 2022-01-07 06:00 | NUR ---
NO ACUTE EVENT THROUGHOUT THE NIGHT. PATIENT STABLE AND NOT ON ANY DISTRESS. NO COMPLAIN AT THIS TIME. ALL NEEDS ATTENDED. CALL LIGHT WITHIN REACH. WILL ENDORSE THE PATIENT TO THE ONCOMING NURSE FOR CONTINUITY OF CARE.
--- NOTE | 2022-01-07 07:31 | NUR ---
ONCOMING RN KAYE WILL BELATE. ENDORSE THE PATIENT TO RETAIL MERCHANDISING COORDINATOR JOWIE. PATIENT STABLE. SIGNING OFF.
[2022-01-07 08:00] VITALS: BP 163/102
[2022-01-07] MEDS: FUROSEMIDE 20 MG TAB PO SCH (10:18)
[2022-01-07] MEDS: PANTOPRAZOLE 40 MG TABEC PO SCH (10:18)
[2022-01-07] MEDS: LACTULOSE 20 GM/30 ML UDC PO SCH ×3 (10:19→17:00)
[2022-01-07] MEDS: NIFEdipine 30 MG TABER PO SCH (10:19)
[2022-01-07] MEDS: GABAPENTIN 300 MG CAP PO SCH (10:19)
[2022-01-07] MEDS: CLOPIDOGREL 75 MG TAB PO SCH (10:20)
[2022-01-07 12:00] VITALS: BP 159/74
[2022-01-07] MEDS: VANCOMYCIN HCL 25 MG/ML SOLN PO SCH ×3 (12:00→23:59)
[2022-01-07 16:00] VITALS: BP 155/65
[2022-01-07] MEDS: ATORVASTATIN 20 MG TAB PO SCH (17:29)
[2022-01-07] MEDS ORDERED: MORPHINE SULFATE 2 MG/ML SYR IVP PRN (18:25)
--- NOTE | 2022-01-07 19:54 | NUR ---
RECEIVED REPORT FROM THE MORNING NURSE. PT IS AOX4, AMBULATORY, ABLE TO VERBALIZE NEEDS AND ABLE TO FOLLOW COMMANDS. PT IS ON ROOM AIR, WITH CARDIAC DIET. PT HAS IV ON LEFT AC GAUGE 20 SALINE LOCK. PT SKIN IS INTACT. ALL SAFETY MEASURES IMPLEMENTED. BED IN LOW POSITION, BED WHEELS ON LOCKED AND CALL LIGHT WITHIN REACH.
[2022-01-07 20:00] VITALS: BP 159/93
[2022-01-07] MEDS: DONEPEZIL 10 MG TAB PO SCH (20:37)
--- NOTE | 2022-01-07 20:37 | NUR ---
SCHEDULED AND PRESCRIBED MEDICATION WAS GIVEN TO PT PER MD ORDER. ALL SAFETY MEASURES IMPLEMENTED. BED IN LOW POSITION, BED WHEELS ON LOCKED AND CALL LIGHT WITHIN REACH.
--- NOTE | 2022-01-07 22:18 | NUR ---
PRN PAIN MEDICATION WAS GIVEN TO PT WITH THE PAIN SCALE OF 7/10 DUE TO ABDOMINAL PAIN. ALL SAFETY MEASURES IMPLEMENTED. BED IN LOW POSITION, BED WHEELS ON LOCKED AND CALL LIGHT WITHIN REACH.
--- NOTE | 2022-01-07 22:59 | NUR ---
NOTIFIED DR. YI, REGARDING PT WANTS MORPHINE BUT THE PT HAS ALLERGY ON CODEINE. DR. YI ORDER IV MORPHINE 1MG EVERY 6HRS PRN FOR SEVERE PAIN. ORDER WAS MADE AND CARRIED OUT.
[2022-01-08] VITALS: BP 158/90
[2022-01-08] MEDS: ONDANSETRON 4 MG/2 ML VIAL IM/IVP PRN ×2 (02:40→20:44)
[2022-01-08] MEDS: MORPHINE SULFATE 2 MG/ML SYR IVP PRN ×3 (02:40→20:45)
--- NOTE | 2022-01-08 02:40 | NUR ---
PRN PAIN MEDICATION WAS GIVEN TO PT WITH THE PAIN SCALE OF 8/10 DUE TO ABD PAIN. ALL SAFETY MEASURES IMPLEMENTED. BED IN LOW POSITION, BED WHEELS ON LOCKED AND CALL LIGHT WITHIN REACH.
[2022-01-08] MEDS: VANCOMYCIN HCL 25 MG/ML SOLN PO SCH ×4 (05:29→23:28)
[2022-01-08 05:52] LABS: BASOPHILS # (AUTO) 0.1 K/uL (0.00-0.22); BASOPHILS % (AUTO) 1.3 % (0.0-2.0); EOSINOPHILS # (AUTO) 0.6 K/uL (0-0.4); EOSINOPHILS % (AUTO) 7.8 % (0.0-4.0); HEMATOCRIT 36.1 % (36-48); HEMOGLOBIN 11.6 g/dL (12.0-16.0); LYMPHOCYTES # (AUTO) 1.8 K/uL (2.5-16.5); LYMPHOCYTES % (AUTO) 24.6 % (20.5-51.1); MEAN CORPUSCULAR HEMOGLOBIN 24 pg (27-31); MEAN CORPUSCULAR HGB CONC 32 g/dL (33-37); MONOCYTES # (AUTO) 0.6 K/uL (0.8-1.0); MONOCYTES % (AUTO) 8.6 % (1.7-9.3); NEUTROPHILS # (AUTO) 4.3 K/uL (1.8-7.7); NEUTROPHILS % (AUTO) 57.7 % (42.2-75.2); PLATELET COUNT (AUTO) 358 K/uL (140-450); RED BLOOD CELL COUNT(AUTO) 4.76 MIL/uL (4.20-5.40); WHITE BLOOD COUNT (AUTO) 7.4 K/uL (4.8-10.8)
[2022-01-08 06:18] LABS: ANION GAP 16.2 (8-16); CARBON DIOXIDE 23.6 mmol/L (21-32); CHLORIDE 106 mmol/L (98-107); CREATININE 1.5 mg/dL (0.6-1.3); GLUCOSE 87 mg/dL (74-106); POTASSIUM 3.8 mmol/L (3.5-5.1); SODIUM SERUM 142 mmol/L (136-145); UREA NITROGEN, BLOOD 17 mg/dL (7-18)
--- NOTE | 2022-01-08 07:36 | NUR ---
PT IS STABLE. ENDORSED PT TO MORNING SHIFT NURSE FOR CONTINUITY OF CARE.
[2022-01-08 08:00] VITALS: BP 143/90
[2022-01-08] MEDS: NIFEdipine 30 MG TABER PO SCH (10:25)
[2022-01-08] MEDS: GABAPENTIN 300 MG CAP PO SCH (10:26)
[2022-01-08] MEDS: FUROSEMIDE 20 MG TAB PO SCH (10:26)
[2022-01-08] MEDS: PANTOPRAZOLE 40 MG TABEC PO SCH (10:27)
[2022-01-08] MEDS: CLOPIDOGREL 75 MG TAB PO SCH (10:27)
[2022-01-08 16:00] VITALS: BP 153/76
[2022-01-08] MEDS: ATORVASTATIN 20 MG TAB PO SCH (17:16)
[2022-01-08] MEDS: HYDROcodone/APAP 7.5/325 MG 1 TAB PO PRN (19:02)
--- NOTE | 2022-01-08 19:17 | NUR ---
ENDORSE PATIENT IN STABLE CONDITION TO PM SHIFT WHILE PATIENT REST IN BED, NORCO GIVEN FOR PAIN AFTER INGESTING FOOD. PIV SALINE LOCK R. WRIST
--- NOTE | 2022-01-08 19:18 | NUR ---
RECEIVED REPORT FROM THE MORNING NURSE. PT IS AOX4, AMBULATORY, ABLE TO VERBALIZE NEEDS AND ABLE TO FOLLOW COMMANDS. PT IS ON ROOM AIR, WITH CARDIAC DIET. PT HAS IV ON RIGHT WRIST GAUGE 20 SALINE LOCK. PT SKIN IS INTACT. ALL SAFETY MEASURES IMPLEMENTED. BED IN LOW POSITION, BED WHEELS ON LOCKED AND CALL LIGHT WITHIN REACH.
[2022-01-08] MEDS: DONEPEZIL 10 MG TAB PO SCH (20:05)
--- NOTE | 2022-01-08 20:45 | NUR ---
PRN PAIN MEDICATION WAS GIVEN TO PT WITH THE PAIN SCALE OF 7/10 DUE TO ABD PAIN. ALL SAFETY MEASURES IMPLEMENTED. BED IN LOW POSITION, BED WHEELS ON LOCKED AND CALL LIGHT WITHIN REACH.
--- NOTE | 2022-01-08 22:43 | NUR ---
PRN COLACE WAS GIVEN TO PT PER PT REQUEST. ALL SAFETY MEASURES IMPLEMENTED. BED WHEELS ON LOCKED, BED IN LOW POSITION, AND CALL LIGHT WITHIN REACH.
[2022-01-09] MEDS: HYDROcodone/APAP 7.5/325 MG 1 TAB PO PRN (02:03)
--- NOTE | 2022-01-09 02:03 | NUR ---
PRN PAIN MEDICATION WAS GIVEN TO PT WITH THE PAIN SCALE OF 6/10 DUE TO RIGHT BACK PAIN. ALL SAFETY MEASURES IMPLEMENTED. BED IN LOW POSITION, BED WHEELS ON LOCKED AND CALL LIGHT WITHIN REACH.
[2022-01-09 04:00] VITALS: BP 145/76
[2022-01-09 05:14] LABS: BASOPHILS # (AUTO) 0.1 K/uL (0.00-0.22); BASOPHILS % (AUTO) 1.3 % (0.0-2.0); EOSINOPHILS # (AUTO) 0.6 K/uL (0-0.4); EOSINOPHILS % (AUTO) 7.2 % (0.0-4.0); HEMATOCRIT 35.4 % (36-48); HEMOGLOBIN 11.3 g/dL (12.0-16.0); LYMPHOCYTES # (AUTO) 1.8 K/uL (2.5-16.5); LYMPHOCYTES % (AUTO) 22.9 % (20.5-51.1); MEAN CORPUSCULAR HEMOGLOBIN 24 pg (27-31); MEAN CORPUSCULAR HGB CONC 32 g/dL (33-37); MEAN CORPUSCULAR VOLUME 75.7 fL (80-94); MONOCYTES # (AUTO) 0.8 K/uL (0.8-1.0); MONOCYTES % (AUTO) 9.6 % (1.7-9.3); NEUTROPHILS # (AUTO) 4.7 K/uL (1.8-7.7); PLATELET COUNT (AUTO) 350 K/uL (140-450); RED BLOOD CELL COUNT(AUTO) 4.67 MIL/uL (4.20-5.40)
[2022-01-09] MEDS: VANCOMYCIN HCL 25 MG/ML SOLN PO SCH ×2 (05:19→11:56)
[2022-01-09 05:27] LABS: ANION GAP 15.2 (8-16); CARBON DIOXIDE 24.4 mmol/L (21-32); CHLORIDE 105 mmol/L (98-107); CREATININE 1.7 mg/dL (0.6-1.3); GLUCOSE 88 mg/dL (74-106); POTASSIUM 3.6 mmol/L (3.5-5.1); SODIUM SERUM 141 mmol/L (136-145); UREA NITROGEN, BLOOD 17 mg/dL (7-18)
[2022-01-09] MEDS: ONDANSETRON 4 MG/2 ML VIAL IM/IVP PRN (06:16)
[2022-01-09] MEDS: MORPHINE SULFATE 2 MG/ML SYR IVP PRN ×2 (06:17→11:52)
--- NOTE | 2022-01-09 07:21 | NUR ---
PT IS STABLE. ENDORSED PT TO MORNING SHIFT NURSE FOR CONTINUITY OF CARE.
[2022-01-09 08:00] VITALS: BP 132/60
[2022-01-09] MEDS: NIFEdipine 30 MG TABER PO SCH (09:44)
[2022-01-09] MEDS: GABAPENTIN 300 MG CAP PO SCH (09:44)
[2022-01-09] MEDS: PANTOPRAZOLE 40 MG TABEC PO SCH (09:44)
[2022-01-09] MEDS: FUROSEMIDE 20 MG TAB PO SCH (09:44)
[2022-01-09] MEDS: CLOPIDOGREL 75 MG TAB PO SCH (09:44)
[2022-01-09] MEDS ORDERED: VANC125C5 PO (10:42)
[2022-01-09] MEDS ORDERED: VANC250C3 PO (10:42)
[2022-01-09 16:00] VITALS: BP 146/76
[2022-01-09 16:35] VITALS: BP 146/76
[2022-01-09] MEDS: ATORVASTATIN 20 MG TAB PO SCH (17:00)
--- NOTE | 2022-01-09 17:32 | NUR ---
DISCHARGE PATIENT IN STABLE CONDITION PER PCP ORDER; DISCHARGE INSTRUCTION GIVEN, CONSENT SIGN, IV ACCESS & WRIST BAND REMOVE BEFORE STAFF WALK PATIENT OUT THE FACILITY. PATIENT AMBULATORY WIT WALKER AND HOUSE ARRANGE UBER LABEL PRINTER PATIENT AND BRING HR BACK TO [facility] APPOINTMENT.
== END 2022-01-09 17:30 | disposition home or self-care (01) | DRG 371 ==
LOC: MED 11:57 → MTU 15:54
PROVIDERS: ADMIT Family Medicine; ATTEND Family Medicine
DX: A04.72 Enterocolitis due to Clostridium difficile, not specified as recurrent (principal); I50.33 Acute on chronic diastolic (congestive) heart failure; N17.0 Acute kidney failure with tubular necrosis; I13.0 Hypertensive heart and chronic kidney disease with heart failure and stage 1 through stage 4 chronic kidney disease, or unspecified chronic kidney disease; E86.0 Dehydration; D63.8 Anemia in other chronic diseases classified elsewhere; E78.5 Hyperlipidemia, unspecified; Z20.822 Contact with and (suspected) exposure to COVID-19; I25.10 Atherosclerotic heart disease of native coronary artery without angina pectoris; R00.1 Bradycardia, unspecified; E83.51 Hypocalcemia; N18.9 Chronic kidney disease, unspecified; E11.22 Type 2 diabetes mellitus with diabetic chronic kidney disease; Z91.041 Radiographic dye allergy status; Z88.5 Allergy status to narcotic agent; Z91.013 Allergy to seafood; Z79.891 Long term (current) use of opiate analgesic; Z79.899 Other long term (current) drug therapy; Z83.3 Family history of diabetes mellitus
CPT/HCPCS: 36415; 71045; 76770; 80048; 80053; 80305; 81003; 82150; 82272; 83036; 83540; 83605; 83690; 83735; 83880; 84100; 84436; 84439; 84443; 84479; 84484; 85025; 85610; 85730; 87040; 87045; 87070; 87081; 89055; 93005; 96361; 96374; 96375; 97116; 97163-GP; 99291; J0360; J1885; J1940; J2270; J2405; Q0092

== ENCOUNTER 2022-02-14 10:02 | Emergency (ER) | payer MEDICARE, OTHER ==
[~2022-02-14] VITALS: Ht 149.9 cm; Wt 81.6 kg
[~2022-02-14 10:02] MED LIST changes: -AMLO-271 PO; +AMLO10TA PO; +CARV6.252 PO; -CEPH500C16 PO; +CLOP-68 PO; -CLOP75TA26 PO; +DONE10TA10 PO; -FLO44 IH; -FLONAS NS; +GABA300C PO; -IMI25 PO; -LOSA50TA66 PO; -ROB PO; +VANC125C5 PO; -ZYL300 PO
[2022-02-14 10:35] VITALS: BP 176/103
--- NOTE | 2022-02-14 10:42 | NUR ---
TENT 1.
--- NOTE | 2022-02-14 10:42 | NUR ---
COVID, FLU SWABS DONE.
--- NOTE | 2022-02-14 10:43 | NUR ---
BIB SELF C/O SOB, MID CHEST PAIN, STEPHENS, 9/10 SORE THROAT X 2 DAYS. EXPOSED TO COVID. PMH: CANCER( NON HODGKINS LYMPHOMA, RIGHT PORTACATH FOR INFUSION, CHF, STROKE, 1 LEFT KIDNEY, HTN, HLD, CAD, 8 STENTS, CHOLECYSTECTOMY, HYSTERECTOMY
[2022-02-14] MEDS ORDERED: BEBTELOVIMAB 175 MG/2 ML VIAL IV ONE (16:50)
--- NOTE | 2022-02-14 18:15 | NUR ---
PT RECEIVED, CARE ASSUMED. PT C/O COUGH. PLACED PT ON BED, CONNECTED TO TELE MONITOR.
[2022-02-14 18:58] LABS: ALBUMIN 3.7 g/dL (3.4-5.0); ANION GAP 13.2 (8-16); ASPARTATE AMINOTRANSFERASE 13 U/L (15-37); CARBON DIOXIDE 26.5 mmol/L (21-32); CHLORIDE 104 mmol/L (98-107); CREATININE 1.7 mg/dL (0.6-1.3); GLUCOSE 105 mg/dL (74-106); POTASSIUM 3.7 mmol/L (3.5-5.1); SODIUM SERUM 140 mmol/L (136-145); TOTAL BILIRUBIN 0.4 mg/dL (0.0-1.0); UREA NITROGEN, BLOOD 20 mg/dL (7-18)
--- NOTE | 2022-02-14 19:35 | NUR ---
Patient resting in bed, A/Ox4, chest rise and fall symmetrical, no s/s of distress, patient on monitor.
[2022-02-14 20:14] LABS: BASOPHILS # (AUTO) 0.1 K/uL (0.00-0.22); BASOPHILS % (AUTO) 0.8 % (0.0-2.0); EOSINOPHILS # (AUTO) 0.5 K/uL (0-0.4); EOSINOPHILS % (AUTO) 5.8 % (0.0-4.0); HEMATOCRIT 38.6 % (36-48); HEMOGLOBIN 12.1 g/dL (12.0-16.0); LYMPHOCYTES # (AUTO) 1.8 K/uL (2.5-16.5); LYMPHOCYTES % (AUTO) 22.3 % (20.5-51.1); MEAN CORPUSCULAR HEMOGLOBIN 24 pg (27-31); MEAN CORPUSCULAR HGB CONC 31 g/dL (33-37); MEAN CORPUSCULAR VOLUME 77.1 fL (80-94); MONOCYTES # (AUTO) 0.9 K/uL (0.8-1.0); MONOCYTES % (AUTO) 10.7 % (1.7-9.3); NEUTROPHILS # (AUTO) 4.9 K/uL (1.8-7.7); NEUTROPHILS % (AUTO) 60.4 % (42.2-75.2); PLATELET COUNT (AUTO) 310 K/uL (140-450); RED BLOOD CELL COUNT(AUTO) 5.01 MIL/uL (4.20-5.40); RED CELL DISTRIBUTION WIDTH 17.9 % (11.6-13.7); WHITE BLOOD COUNT (AUTO) 8.1 K/uL (4.8-10.8)
--- NOTE | 2022-02-14 20:15 | NUR ---
Patient resting in bed, A/Ox4, chest rise and fall symmetrical, no s/s of distress, patient on monitor.
[2022-02-14] MEDS ORDERED: [UNRECOGNIZED DRUG - CODE] PO (21:05)
[2022-02-14] MEDS ORDERED: ACET-10509 PO (21:05)
[2022-02-14] MEDS ORDERED: ONDA-188 PO (21:05)
[2022-02-14 21:26] VITALS: BP 158/91
== END 2022-02-14 21:26 | disposition home or self-care (01) ==
LOC: MED 10:02
DX: U07.1 COVID-19 (principal); E03.9 Hypothyroidism, unspecified; I10 Essential (primary) hypertension; I25.10 Atherosclerotic heart disease of native coronary artery without angina pectoris; E78.00 Pure hypercholesterolemia, unspecified; Z91.013 Allergy to seafood; Z79.899 Other long term (current) drug therapy; Z88.5 Allergy status to narcotic agent; Z90.49 Acquired absence of other specified parts of digestive tract; Z90.710 Acquired absence of both cervix and uterus
CPT/HCPCS: 36415; 71045; 80053; 84484; 85025; 93005; 99285